=== PATIENT | female | born 2000 | race Caucasian/White ===

== ENCOUNTER 2020-09-10 05:39 | Emergency (ER) | payer BC, SELFPAY ==
--- NOTE | ~2020-09-10 | CT_ITS ---
EXAMINATION: CT brain w con DATE: 09/10/2020 08:44 INDICATION: Facial swelling and leukocytosis. TECHNIQUE: Computed tomography (CT) of the head was performed with 100 mL Omnipaque-350 intravenous c ontrast. Sagittal and coronal reconstructions were performed. The mA was adjusted according to patien t size. Iterative reconstruction technique was employed. The dose-length product was 605.33 mGy-cm. COMPARISON: None FINDINGS: No acute intracranial hemorrhage, acute infarction or abnormal extra axial fluid collection. Ventricl es are normal and symmetric. No mass/mass effect. No abnormally enhancing brain lesions. Cerebral vas culature appears normal with no hemodynamically significant stenosis or aneurysm. The cerebral venous sinuses are patent no evident thrombosis. The paranasal sinuses and mastoid air cells are normal. Mi ld preseptal edema at the left orbit. Orbits are otherwise unremarkable with no post septal inflammat ory stranding. IMPRESSION: 1. Mild preseptal edema at the left orbit without evident post septal inflammatory stranding. 2. Otherwise unremarkable head CT with normal brain and no acute intracranial process. Reviewed, dictated and finalized at location A. IMPRESSION: 1. Mild preseptal edema at the left orbit without evident post septal inflammat ory stranding. 2. Otherwise unremarkable head CT with normal brain and no acute intracranial p rocess.
--- NOTE | ~2020-09-10 | CT_ITS ---
EXAMINATION: CT facial bones w con DATE: 09/10/2020 06:58 INDICATION: Left eye pain and swelling TECHNIQUE: Computed tomography (CT) of the facial bones and maxillofacial region was performed with 7 5 cc of Omnipaque 350 intravenous contrast. The dose-length product (DLP) was 308.27 mGy-cm. Automate d exposure control and iterative reconstruction technique were employed. COMPARISON: None. FINDINGS: There is subtle thickening and inflammation of the left eyelid compared to the right. No fo mercedes fluid collection is identified. The facial bones are unremarkable. The globes are intact. Gaze is mildly disconjugate. There is mild mucosal thickening of the left maxillary sinus posteriorly. IMPRESSION: 1. Subtle thickening and inflammation of the left eyelid compared to the right without evidence of ab scess. Reviewed, dictated and finalized at location A. IMPRESSION: 1. Subtle thickening and inflammation of the left eyelid compared to the right without evidence of abscess.
[2020-09-10 05:44] VITALS: BP 110/72; PULSE 78; RESP 16; TEMP 35.9; O2SAT 98
[2020-09-10] MEDS: TETRACAINE HCL 0.5% OPHTH SOLN 4 ML BTL 2 DROP LEFT EYE (06:05)
--- NOTE | 2020-09-10 06:08 | ED.GENADULT ---
HPI - General Adult General Chief complaint: Eye Problems <Gui Wise MD - Last Filed: 09/10/20 07:11> Stated complaint: eye pain with swelling <Gui Wise MD - Last Filed: 09/10/20 07:11> Time Seen by Provider: 09/10/20 05:53 <Gui Wise MD - Last Filed: 09/10/20 07:11> History of Present Illness HPI narrative: Patient is a 20-year-old female that presents the emergency department with chief complaint of left eye pain. The patient was seen at urgent care last week diagnosed with a sinus infection and conjunctivitis. Patient was given a steroid and also was on Augmentin. Patient reports he is completed the course of the Augmentin and reports she has discomfort in her left eye and reports that she has injection of her conjunctiva. Patient reports that it hurts whenever she opens her eyes reports that her eyelid is red and swollen on the left side. Patient denies fever states is a little bit of a scratchy throat with this <Gui Wise MD - Last Filed: 09/10/20 07:11> Related Data Allergies/adverse reactions: Allergies Allergy/AdvReac Type Severity Reaction Status Date / Time No Known Allergies Allergy Verified 08/05/20 13:05 <Gui Wise MD - Last Filed: 09/10/20 07:11> Review of Systems Review of Systems: Narrative: A 10 system review of systems was completed on the patient and is negative except for what is stated in the HPI. Nursing and ancillary documentation was reviewed. <Gui Wise MD - Last Filed: 09/10/20 07:11> [facility] Past Medical History Medical History: Medical History Acute non-recurrent maxillary sinusitis BMI 20.0-20.9, adult Depression with anxiety Dietary counseling and surveillance (12/31/17) Family hx of ALS (amyotrophic lateral sclerosis) Pain in thoracic spine Routine physical examination Thoracolumbar back pain Viral upper respiratory infection <Gui Wise MD - Last Filed: 09/10/20 07:11> Family History Family History: Family History Father Diabetes mellitus Mother ALS (amyotrophic lateral sclerosis) Sibling No problems noted. <Gui Wise MD - Last Filed: 09/10/20 07:11> Social History Social History: Social History Smoking status: Never smoker Second hand tobacco smoke exposure: Yes Alcohol intake: current Substance use: current Substance use type: marijuana Additional occupation/education comments: [employer] Gender identity (if verbalized by the patient): Female <Gui Wise MD - Last Filed: 09/10/20 07:11> Exam Narrative: Exam Narrative: GENERAL: Well-appearing, well-nourished, and in no acute distress. HEAD: Normocephalic, atraumatic. EYES: PERRLA and EOMI. left eye is injected left eyelid is erythematous ENT: Nares clear, no rhinorrhea or epistaxis. Mucous membranes moist. NECK: Supple. CHEST: Clear to auscultation. No respiratory distress. HEART: Regular rate and rhythm. No murmur heard. Normal peripheral pulses. ABDOMEN: Soft, nontender, nondistended, normal active bowel sounds. EXTREMITIES: Normal range of motion. No edema. SKIN: Warm, dry, no rash. NEURO: No focal deficits. Alert and oriented x3. PSYCH: Normal mood and affect. <Gui Wise MD - Last Filed: 09/10/20 07:11> Course Course Emergency Course: Pt has had two or possibly three courses of augmentin and/or azithro, and two courses of steroids already I did a brain CT, no evidence for CVT She had appt with Dr Vera (ENT) for Sunday and he was able to see her in the ED, thinks more likely ophthamologic or even rheumatologic which could explain partial response to steroids Stained w/ flourescein and no
[2020-09-10 06:38] LABS: Basophils Absolute Auto 0.1 K/mm3 (0.0-0.1); Basophils Percent Auto 0.3 % (0.2-1.2); Eosinophils Absolute Auto 0.1 K/mm3 (0-0.3); Eosinophils Percent Auto 0.7 % (0-4.4); Hematocrit 38.7 % (37.0-47.0); Hemoglobin 13.1 g/dL (12.0-15.0); Immature Granulocyte Absolute 0.09 K/mm3 (0.00-0.031); Immature Granulocyte Percent A 0.5 % (0-0.5); Lymphocytes Absolute Auto 3.15 K/mm3 (0.9-3.2); Lymphocytes Percent Auto 17.8 % (18.3-44.2); Mean Corpuscular HGB Conc 33.9 g/dl (32-36); Mean Corpuscular Hemoglobin 32.8 pg (26-34); Mean Corpuscular Volume 96.8 fl (80-100); Mean Platelet Volume 9.3 fl (7.4-10.4); Monocytes Absolute Auto 1.1 K/mm3 (0.1-0.6); Neutrophils Absolute Auto 13.2 K/mm3 (1.3-6.7); Neutrophils Percent Auto 74.7 % (45.5-73.1); Platelet Count Result 311 k/mm3 (150-375); Red Cell Distribution Width 12.4 % (11.5-14.5); White Blood Count 17.7 K/mm3 (4.5-10.0)
[2020-09-10 06:46] LABS: Alanine Aminotransferase 23 U/L (4-35); Albumin Level 4.3 g/dL (3.5-5.1); Alkaline Phosphatase 65 U/L (38-126); Anion Gap 4 mmol/L (8-16); Aspartate Amino Transferase 26 U/L (14-36); Bilirubin,Total 0.2 mg/dL (0.2-1.3); Blood Urea Nitrogen 15 mg/dL (7-17); Calcium 9.5 mg/dL (8.4-10.2); Carbon Dioxide 31 mmol/L (22-30); Chloride 105 mmol/L (98-107); Estimated CRCL calculation 91 ml/min; Estimated Glomerular Filt Rate > 60; Glucose 97 mg/dL (65-105); Potassium 4.4 mmol/L (3.4-5.0); Sodium 140 mmol/L (137-145)
[2020-09-10 07:21] VITALS: BP 104/72; PULSE 61; RESP 18; O2SAT 98
[2020-09-10 09:10] VITALS: BP 108/77; PULSE 62; RESP 18; O2SAT 99
[2020-09-10 10:45] VITALS: BP 111/77; PULSE 81; RESP 18; O2SAT 99
--- NOTE | 2020-09-10 11:00 | PC.NURSE ---
Report given to MAGALYS Leslie
[2020-09-10] MEDS: KETOROLAC 15 MG/ML VIAL (*BKC) IV PUSH (11:01)
--- NOTE | 2020-09-10 12:02 | WPDCN ---
Assessment and Plan Assessment and plan (1) Orbital edema: Code(s): H05.229 - Edema of unspecified orbit Status: Acute Assessment and Plan: Given the blurred vision and edema with normal sinonasal examination and imaging, I would recommend an urgent evaluation by an paper feeder. My impression is that the patient has an inflammatory disorder possibly rheumatologic vs allergic vs infectious. (2) Blurred vision: Code(s): H53.8 - Other visual disturbances Status: Acute HPI Data of Consult Date/Time: 09/10/20 12:02 Primary Care Provider: Noe Shelley MD Consult Narrative Narrative: Yudith Stephen is a 20 year old female for recurrent intermittent eye swelling of one months duration. No hx of allergies. Abx typically do not help. Steroids help. Second generation antihistamines help. White count elevated. Pt complains of eye pain and blurred vision. Optho not available for consultation. CT reviewed, relatively normal, no sinonasal pathology. eyelids mildly edematous. Possible myositis? [facility] Past Medical History Medical History Acute non-recurrent maxillary sinusitis BMI 20.0-20.9, adult Depression with anxiety Dietary counseling and surveillance (12/31/17) Family hx of ALS (amyotrophic lateral sclerosis) Pain in thoracic spine Routine physical examination Thoracolumbar back pain Viral upper respiratory infection Family History Family History Father Diabetes mellitus Mother ALS (amyotrophic lateral sclerosis) Sibling No problems noted. Social History Social History Smoking status: Never smoker Second hand tobacco smoke exposure: Yes Alcohol intake: current Substance use: current Substance use type: marijuana Additional occupation/education comments: [employer] Gender identity (if verbalized by the patient): Female Meds Home Medications and Allergies Home Medications Medication Instructions Recorded Confirmed Type azithromycin 250 mg tablet See Rx Instructions PO .COMPLEX #6 08/05/20 08/05/20 Rx tablet Allergies Allergy/AdvReac Type Severity Reaction Status Date / Time No Known Allergies Allergy Verified 08/05/20 13:05 Vital Signs Vital Signs - 24 hr 09/10/20 05:44 09/10/20 07:21 09/10/20 09:10 Temperature 35.9 C L Pulse Rate 78 61 62 Respiratory Rate 16 18 18 Blood Pressure 110/72 104/72 108/77 Pulse Oximetry 98 98 99 09/10/20 10:45 Temperature Pulse Rate 81 Respiratory Rate 18 Blood Pressure 111/77 Pulse Oximetry 99 Exam HENMT: Other: Bilateral orbital edema, excess tearing, mild injection Results Labs CBC & Chem 7: 09/10/20 06:31 09/10/20 06:31 Labs: Short CBC 09/10/20 Range/Units 06:31 WBC 17.7 H (4.5-10.0) K/mm3 Hgb 13.1 (12.0-15.0) g/dL Hct 38.7 (37.0-47.0) % Plt Count 311 (150-375) k/mm3 BMP 09/10/20 06:31 Sodium 140 Potassium 4.4 Chloride 105 Carbon Dioxide 31 H BUN 15 Creatinine 0.70 Glucose 97 Calcium 9.5 Liver Function 09/10/20 Range/Units 06:31 Total Bilirubin 0.2 (0.2-1.3) mg/dL AST 26 (14-36) U/L ALT 23 (4-35) U/L Alkaline Phosphatase 65 (38-126) U/L Albumin 4.3 (3.5-5.1) g/dL
== END 2020-09-10 13:15 | disposition home or self-care (01) ==
PROVIDERS: Emergency Medicine; Emergency Provider Emergency Medicine; PCP Family Medicine
DX: L03.213 Periorbital cellulitis (principal); H05.229 Edema of unspecified orbit; H53.8 Other visual disturbances
CPT/HCPCS: 36415; 70460; 70487; 80053; 81025; 85025; 96374; 99284; A9270; J1885; Q9967

== ENCOUNTER 2023-07-13 10:38 | Outpatient (CLI) | payer BC, SELFPAY ==
--- NOTE | ~2023-07-13 | XR_ITS ---
Right foot Technique: AP and lateral views were obtained. Clinical History: Swelling Findings: No acute fracture or dislocation is seen. Osseous alignment is anatomic. Joint spaces are p reserved without erosive or degenerative change. Soft tissues are unremarkable. Impression: Unremarkable right foot radiographs. Reviewed, dictated and finalized at [facility]. [employer] Impression: Unremarkable right foot radiographs.
== END 2023-07-13 10:39 ==
PROVIDERS: PCP Nurse Practitioner Adult Health; Visit Provider Nurse Practitioner Adult Health
DX: R60.0 Localized edema (principal)
CPT/HCPCS: 73620

== ENCOUNTER 2023-09-26 11:12 | Emergency (ER) | payer BC, SELFPAY ==
--- NOTE | ~2023-09-26 | CT_ITS ---
EXAMINATION: CT abdomen pelvis w con DATE: 09/26/2023 13:02 INDICATION: Epigastric abdominal pain, heartburn TECHNIQUE: Computed tomography (CT) of the abdomen and pelvis was performed with 100 CC Omnipaque 350 intravenous contrast. Automated exposure control and iterative reconstruction technique were employe d. Exam dose: 349.22 mGy-cm total exam DLP. COMPARISON: None. FINDINGS: The lung bases are clear. Normal heart size. No pericardial or pleural effusion. The liver, gallbladder, bile ducts, spleen, pancreas, pancreatic duct, adrenal glands and kidneys raven ear normal. Normal caliber of the abdominal aorta. No intraperitoneal or retroperitoneal or pelvic mass lesion or adenopathy or ascites. The uterus and adnexal areas and urinary bladder are unremarkable. No bowel obstruction, bowel wall thickening, pneumatosis or intraperitoneal free air is detected. Included skeletal structures are unremarkable. IMPRESSION: No significant abnormality Reviewed, dictated and finalized at [facility]. Reviewed, dictated and finalized at location B. IMPRESSION: No significant abnormality
[2023-09-26 11:27] VITALS: BP 148/100; PULSE 97; RESP 20; TEMP 36.6; O2SAT 100
[2023-09-26 11:57] LABS: Basophils Percent Auto 0.3 % (0.2-1.2); Hematocrit 41.6 % (37.0-47.0); Hemoglobin 14.2 g/dL (12.0-15.0); Immature Granulocyte Absolute 0.06 K/mm3 (0.00-0.031); Immature Granulocyte Percent A 0.4 % (0-0.5); Lymphocytes Absolute Auto 0.98 K/mm3 (0.9-3.2); Lymphocytes Percent Auto 7.3 % (18.3-44.2); Mean Corpuscular HGB Conc 34.1 g/dl (32-36); Mean Corpuscular Hemoglobin 31.9 pg (26-34); Mean Corpuscular Volume 93.5 fl (80-100); Mean Platelet Volume 10.3 fl (7.4-10.4); Monocytes Absolute Auto 0.3 K/mm3 (0.1-0.6); Monocytes Percent Auto 2.2 % (2.6-8.5); Neutrophils Percent Auto 89.8 % (45.5-73.1); Platelet Count Result 293 k/mm3 (150-375); Red Blood Count 4.45 M/mm3 (4.2-5.4); Red Cell Distribution Width 11.9 % (11.5-14.5); White Blood Count 13.4 K/mm3 (4.5-10.0)
[2023-09-26 12:07] LABS: Alanine Aminotransferase 22 U/L (6-35); Albumin Level 4.8 g/dL (3.5-5.1); Alkaline Phosphatase 92 U/L (38-126); Anion Gap 11 mmol/L (4-12); Aspartate Amino Transferase 20 U/L (14-36); Bilirubin,Total 0.4 mg/dL (0.2-1.3); Blood Urea Nitrogen 8 mg/dL (7-17); Calcium 9.3 mg/dL (8.4-10.2); Carbon Dioxide 23 mmol/L (22-30); Chloride 106 mmol/L (98-107); Estimated CRCL calculation 101 ml/min; Estimated Glomerular Filt Rate > 60; Glucose 136 mg/dL (65-110); Lipase 377 U/L (23-300); Potassium 3.9 mmol/L (3.4-5.0); Sodium 140 mmol/L (137-145)
--- NOTE | 2023-09-26 12:31 | ED.ABDPAIN ---
HPI - Abdominal Pain General Chief Complaint: Abdominal Pain Stated Complaint: heartburn X10 days Time Seen by Provider: 09/26/23 12:08 History of Present Illness HPI narrative: 23-year-old female presents to the emergency room for evaluation of recurrent epigastric abdominal pain. Patient is complaining of abdominal pain for over 1 week. He was seen at [facility] emergency room with the onset of symptoms. Patient states that the CT scan was obtained showing no abnormalities. Patient was given GI cocktail which she states helped little bit. Was sent home with famotidine, stating tonight help. Patient continues to experience epigastric pain with nausea. Denies fevers. Denies vomiting or diarrhea or constipation. Related Data Home Medications Medication Instructions Recorded Confirmed aripiprazole 5 mg tablet mg PO DAILY 05/25/23 07/13/23 drospirenone 3 mg-ethinyl tablet PO DAILY 05/25/23 07/13/23 estradiol 0.02 mg tablet (Lo-Zumandimine (28)) sertraline 50 mg tablet mg PO DAILY 05/25/23 07/13/23 Allergies Allergy/AdvReac Type Severity Reaction Status Date / Time No Known Allergies Allergy Verified 09/26/23 11:12 Review of Systems Review of Systems: ROS unremarkable except for stated in HPI PMFSH Past Medical History Medical History Acute non-recurrent maxillary sinusitis BMI 20.0-20.9, adult Depression with anxiety Dietary counseling and surveillance (12/31/17) Edema of right foot Family hx of ALS (amyotrophic lateral sclerosis) Pain in thoracic spine Routine physical examination Thoracolumbar back pain Viral upper respiratory infection Family History Family History Father Diabetes mellitus Mother ALS (amyotrophic lateral sclerosis) Sibling No problems noted. Social History Social History Smoking status: Never smoker Second hand tobacco smoke exposure: Yes Alcohol intake: current Substance use: current Substance use type: marijuana Living arrangements: with family Occupation/Education: occupation Additional occupation/education comments: [employer] Gender identity (if verbalized by the patient): Female Exam Narrative: GENERAL: Well-appearing, well-nourished, no physical limitations, and in no acute distress. HEAD: Normocephalic, atraumatic. EYES: Conjunctivae normal, PERRLA and EOMI. CHEST: Clear to auscultation. No respiratory distress. No wheezes rales or rhonchi. HEART: Regular rate and rhythm. No murmur heard. Normal peripheral pulses. ABDOMEN: Soft, upper abdominal epigastric tenderness, nondistended, normal active bowel sounds. BACK: No CVA tenderness EXTREMITIES: Normal range of motion. No edema. No clubbing or cyanosis SKIN: Warm, dry, no rash. No noted wounds NEURO: No focal deficits. Alert and oriented x3. MAEW. CN's II-XI intact bilaterally, normal gait PSYCH: Cooperative. Normal mood and affect. Course Vital Signs Vital signs: Vital Signs Temperature 36.6 C 09/26/23 11:27 Pulse Rate 97 09/26/23 11:27 Respiratory Rate 20 09/26/23 11:27 Blood Pressure 148/100 H 09/26/23 11:27 Pulse Oximetry 100 09/26/23 11:27 Oxygen Delivery Room Air 09/26/23 11:27 Temperature 36.6 C 09/26/23 11:27 Pulse Rate 64 09/26/23 13:05 Respiratory Rate 18 09/26/23 13:05 Blood Pressure 131/82 09/26/23 13:05 Pulse Oximetry 100 09/26/23 13:05 Oxygen Delivery Room Air 09/26/23 11:27 MDM - Abdominal Pain Lab Data 09/26/23 11:33 09/26/23 11:33 Labs: Lab Results 09/26/23 09/26/23 Range/Units 11:33 12:47 WBC 13.4 H (4.5-10.0) K/mm3 RBC 4.45 (4.2-5.4) M/mm3 Hgb 14.2 (12.0-15.0) g/dL Hct 41.6 (37.0-47.0) % MCV 93.5 (80-100) fl MCH 31.9 (26-34) pg MCHC 34.1 (32-36) g/dl RDW
[2023-09-26] MEDS: ONDANSETRON INJ 4 MG/2 ML VIAL IV PUSH (12:45)
[2023-09-26] MEDS: SODIUM CHLORIDE 0.9% IV 1,000 ML 999 ML IV CONT (12:45)
[2023-09-26] MEDS: BELLADONNA ALK/PHENOB ELIX 10 ML, MAG HYDROX/ALUMINUM HYD/SIMETH 30 ML, LIDOCAINE HCL 2... PO (12:45)
[2023-09-26 13:05] VITALS: BP 131/82; PULSE 64; RESP 18; O2SAT 100
[2023-09-26 13:11] LABS: Add Urine Microscopic? YES; Appearance Urine Clear (Clear); Bacteria Urine Rare /hpf; Bilirubin Urine Negative (Negative); Blood Urine Negative (Negative); Color Urine Yellow (Yellow); Glucose Urine UA Negative (Negative); Ketones Urine Negative (Negative); Leukocyte Esterase Ur 1+ LEU/UL (Negative); Nitrate Urine Negative (Negative); Non Pathogenic Casts 0-2; Protein Urine Negative (Negative); Specific Grav Ur 1.019 (1.001-1.035); Squamous Epithelial Cell Urine Moderate /hpf (Few); Urobilinogen Urine 0.2 mg/dL (<2.0)
[2023-09-26 14:49] VITALS: BP 128/83; PULSE 68; RESP 17; TEMP 36.9; O2SAT 100
== END 2023-09-26 14:50 | disposition home or self-care (01) ==
PROVIDERS: Student in an Organized Health Care Education/Training Program; Emergency Provider Nurse Practitioner Family; PCP Family Medicine
DX: R10.13 Epigastric pain (principal); F41.8 Other specified anxiety disorders
CPT/HCPCS: 36415; 74177; 80053; 81001; 81025; 83690; 85025; 87086; 87088; 96361; 96374; 99284; A9270; J2405; J7030; Q9967

== ENCOUNTER 2023-11-27 01:30 | Day surgery (SDC) | payer BC, SELFPAY ==
[2023-11-14 09:31] VITALS: BMI 25.2
[2023-11-27 12:59] VITALS: BP 114/58; PULSE 66; RESP 16; TEMP 36.2; O2SAT 96; BMI 24.9
--- NOTE | 2023-11-27 13:25 | P.PNAN_ITS ---
Anes - Initial Pre Proc Eval Procedure: Operation Date: 11/27/23 14:30 Proposed Procedures p Esophagogastroduodenoscopy - Alden Peña MD Date/Time: 11/27/23 13:25 Surgeon: Alden Peña MD Pre Op Diagnosis: Nausea with vomiting unspecified Patient Data Age: 23 Gender: F Height: 1.7 m Weight: 72.2 kg Last Vital Signs Temp 36.2 C L 11/27/23 12:59 Pulse 66 11/27/23 12:59 Resp 16 11/27/23 12:59 BP 114/58 L 11/27/23 12:59 Pulse Ox 96 11/27/23 12:59 O2 Del Method Room Air 11/27/23 12:59 Allergies Allergy/AdvReac Type Severity Reaction Status Date / Time No Known Allergies Allergy Verified 11/27/23 12:58 Home Medications Medication Instructions Recorded Confirmed Type aripiprazole 5 mg tablet 5 mg PO DAILY 05/25/23 11/27/23 History drospirenone 3 mg-ethinyl 1 tablet PO DAILY 05/25/23 11/27/23 History estradiol 0.02 mg tablet (Lo-Zumandimine (28)) sertraline 50 mg tablet 25 mg PO DAILY 05/25/23 11/27/23 History omeprazole 40 mg capsule,delayed 40 mg PO DAILY 3 months #90 caps 10/18/23 11/27/23 Rx release Patient hx anesthesia problems: none Family hx anesthesia problems: none Results Review: All pre-operative results and documents have been reviewed as part of the pre- operative evaluation. ON LICENSE OF [facility] Past Medical History Medical History Acute non-recurrent maxillary sinusitis BMI 20.0-20.9, adult Depression with anxiety Dietary counseling and surveillance (12/31/17) Edema of right foot Family hx of ALS (amyotrophic lateral sclerosis) Nausea and vomiting Pain in thoracic spine Routine physical examination Thoracolumbar back pain Viral upper respiratory infection Family History Family History Father Diabetes mellitus Mother ALS (amyotrophic lateral sclerosis) Sibling No problems noted. Social History Social History (Updated 11/27/23 @ 13:25 by Bandar Zamorano MD) Smoking status: Current every day smoker Second hand tobacco smoke exposure: Yes Alcohol intake: current Substance use: current Substance use type: marijuana Other substance usage details: several times a day Living arrangements: with family Occupation/Education: occupation Additional occupation/education comments: [employer] Gender identity (if verbalized by the patient): Female Anes - Eval Final PreProcedure Day of Procedure 11/27/23 13:25 Patient weight: normal Heart: regular rate and rhythm Lungs: clear to auscultation Airway: Mallampati scale class II Neurological: alert and oriented Last oral intake: >/= 8 hours ASA classification: II Emergent: no Anesthetic plan: proceed Anesthesia type and monitoring: general GIVS and standard monitoring Results Review: All pre-operative results and documents have been reviewed as part of the pre- operative evaluation. Informed Consent: The patient's anesthetic plan and its attendant risks and benefits were discussed with the patient/family/POA. Questions were solicited and answers provided to the satisfaction of the patient/family/POA.
[2023-11-27] MEDS: LACTATED RINGERS 1,000 ML 150 ML IV CONT (13:36)
--- NOTE | 2023-11-27 14:08 | PM.HPGS ---
History of Present Illness History of Present Illness Consent: Risks, benefits, and alternatives have been discussed and questions answered. Patient agrees to proceed with procedure. Chief complaint: Nausea with vomiting unspecified Narrative: Yudith Stephen is a 23 year old female with gerd and nausea, some relief when she was using omeprazole, never had egd Review of Systems Review of Systems: All systems reviewed & are unremarkable except as noted in HPI and below PMFSH Past Medical History Medical History (Updated 11/27/23 @ 14:09 by Alden Peña MD) Acute non-recurrent maxillary sinusitis BMI 20.0-20.9, adult Depression with anxiety Dietary counseling and surveillance (12/31/17) Edema of right foot Family hx of ALS (amyotrophic lateral sclerosis) GERD (gastroesophageal reflux disease) Nausea and vomiting Pain in thoracic spine Routine physical examination Thoracolumbar back pain Viral upper respiratory infection Family History Family History Father Diabetes mellitus Mother ALS (amyotrophic lateral sclerosis) Sibling No problems noted. Social History Social History (Updated 11/27/23 @ 13:25 by Bandar Zamorano MD) Smoking status: Current every day smoker Second hand tobacco smoke exposure: Yes Alcohol intake: current Substance use: current Substance use type: marijuana Other substance usage details: several times a day Living arrangements: with family Occupation/Education: occupation Additional occupation/education comments: [employer] Gender identity (if verbalized by the patient): Female Meds Home Medications and Allergies Home Medications Medication Instructions Recorded Confirmed Type aripiprazole 5 mg tablet 5 mg PO DAILY 05/25/23 11/27/23 History drospirenone 3 mg-ethinyl 1 tablet PO DAILY 05/25/23 11/27/23 History estradiol 0.02 mg tablet (Lo-Zumandimine (28)) sertraline 50 mg tablet 25 mg PO DAILY 05/25/23 11/27/23 History omeprazole 40 mg capsule,delayed 40 mg PO DAILY 3 months #90 caps 10/18/23 11/27/23 Rx release Allergies Allergy/AdvReac Type Severity Reaction Status Date / Time No Known Allergies Allergy Verified 11/27/23 12:58 Vital Signs Vital Signs - 24 hr 11/27/23 12:59 Temperature 97.2 F L Pulse Rate 66 Respiratory Rate 16 Blood Pressure 114/58 L Pulse Oximetry 96 Oxygen Delivery Room Air Exam Const: General: comfortable and no acute distress HENMT: Face/Nose/Sinus: Normal nares present Eyes: General: appearance normal, both eyes and all related structures Neck: Neck: no JVD Resp: Auscultation: clear to auscultation bilaterally Cardio: Rate: regular rate Rhythm: regular rhythm GI: Inspection: non-distended GI Palp: Yes Soft to palpation Skin: General skin exam: normal color Neuro: General: gait normal Speech: normal speech Extrem: General: normal to inspection Psych: Mental Status: mental status grossly normal Assessment and Plan Assessment and plan (1) Nausea and vomiting: Code(s): R11.2 - Nausea with vomiting, unspecified Status: Acute Assessment and Plan: egd with bx (2) GERD (gastroesophageal reflux disease): Code(s): K21.9 - Gastro-esophageal reflux disease without esophagitis Status: Acute
[2023-11-27 14:21] VITALS: BP 115/82; PULSE 87; RESP 19; O2SAT 96
[2023-11-27 14:31] VITALS: BP 126/90; PULSE 75; RESP 20; O2SAT 100
[2023-11-27 14:41] VITALS: BP 117/78; PULSE 71; RESP 21; O2SAT 100
== END 2023-11-27 14:49 | disposition home or self-care (01) ==
PROVIDERS: PCP Family Medicine; Referring Provider Nurse Practitioner Family; Visit Provider Internal Medicine Gastroenterology
PROC: 0DJ08ZZ Inspection of Upper Intestinal Tract, Via Natural or Artificial Opening Endoscopic (ICD-10-PCS; CPT 43235; principal; 2023-11-27 14:30)
DX: K21.00 Gastro-esophageal reflux disease with esophagitis, without bleeding (principal); F41.8 Other specified anxiety disorders; F12.90 Cannabis use, unspecified, uncomplicated
CPT/HCPCS: 43239; 88305; J2704; J7120

== ENCOUNTER 2023-12-26 15:00 | Outpatient (CLI) | payer BC, SELFPAY ==
--- NOTE | ~2023-12-26 | XR_ITS ---
EXAMINATION: XR sacrum coccyx min 2V DATE: 12/26/2023 15:10 INDICATION: Sacrococcygeal pain. TECHNIQUE: 3 views of the sacrum and coccyx were obtained. COMPARISON: CT abdomen and pelvis 09/26/2023 FINDINGS: Bone alignment is normal. No fracture. The sacroiliac joints are normal. IMPRESSION: 1. Normal sacrum and coccyx. Reviewed, dictated and finalized at location A.
== END 2023-12-26 15:01 ==
PROVIDERS: PCP Nurse Practitioner Adult Health; Visit Provider Nurse Practitioner Adult Health
DX: M53.3 Sacrococcygeal disorders, not elsewhere classified (principal)
CPT/HCPCS: 72220

== ENCOUNTER 2024-08-25 14:58 | Outpatient (CLI) | payer BC, SELFPAY ==
--- NOTE | ~2024-08-25 | XR_ITS ---
XR hand RT min 3V Ordering provider: Alesha Mccall NP History: . M79.641 - Pain in right hand . Comparison: None. FINDINGS: BONES: No acute fracture or dislocation. JOINT SPACES: Normal. SOFT TISSUES: Normal. IMPRESSION: No acute osseous abnormality right hand. Reviewed, dictated and finalized at location A.
== END 2024-08-25 14:59 | disposition home or self-care (01) ==
LOC: MICIMG 14:59
PROVIDERS: PCP Family Medicine
DX: M79.641 Pain in right hand (principal)
CPT/HCPCS: 73130

== ENCOUNTER 2024-09-10 00:31 | Day surgery (SDC) | payer BC, SELFPAY ==
[2024-08-28 13:32] VITALS: BMI 26.9
--- OUTSIDE RECORDS SUMMARY | 2024-09-10 00:34 | XMS_ITS | Clinical Summary ---
Author Organization [facility] Care Team Providers Care Scrap Sorter Name Role Phone Unavailable Primary Care Provider Unavailabl e Social History Tobacco Use Types Packs/Day Years Used Date Smoking Tobacco: Never Assessed Comments Unknown Sex and Gender Information Value Date Recorded Sex Assigned at Not on file Legal Sex Female 7:23 PM CDT Gender Identity Not on file Sexual Orientation Not on file Plan of Treatment Not on file
--- OUTSIDE RECORDS SUMMARY | 2024-09-10 00:34 | XMS_ITS | Clinical Summary ---
Author Organization [facility] Address [address] [place] [address] Care Team Providers Care Manufacturing Automation Engineer Name Role Phone Noe Shelley MD Primary Care Provider [phone] MD Unavailable Source Comments [facility],non-owned Affiliates and Associated Physician Practices is amultiple site organization consisting of ambulatory clinics and hospital sitesin [place], [place], [place] and [place]. This disclosure is being madepursuant to the Care Everywhere program and may not contain all information available regarding this patient. Last updated 18.[facility] Allergies No known active allergies Medications * Be aware that medications may not be up to date on this document. Alwaysverify current medications with the patient. mirtazapine (REMERON) 30 MG tabletIndicatio ns:Depression with anxiety Take 30 mg by mouth at bedtime 1 Active escitalopram (LEXAPRO) 10 MG tablet 2 Active clindamycin-ro zoyl peroxide (DUAC) 1.2-5 % gel APPLY EVERY NIGHT AT BEDTIME TO FACE FOR ACNE 2 Active adapalene (DIFFERIN 0.3) 0.3 % gel APPLY EVERY MORNING TO FACE 2 Active sertraline (Zoloft) 50 MG tablet sertraline 50 mg tablet Active metroNIDAZOLE (Flagyl) 500 MG tablet TAKE 1 TABLET BY MOUTH EVERY 12 HOURS FOR 7 DAYS 2 Active fluconazole (Diflucan) 200 MG tablet 2 Active drospirenone-et hinyl estradiol (Erin) 3-0.02 MG tablet 2 Active ARIPiprazole (Abilify) 5 MG tablet 2 Active Active Problems Problem Noted Date Diagnosed Date Tuberculosis, 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 Depression with anxiety 12/21/2020 Long-term current use of hig h risk medication other than anticoagulant 10/28/2020 Uveitis 09/21/2020 Proteinuria 09/17/2020 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 Immunizations Immunization Administration Dates Next Due DTaP VACCINE IM (6wk-6yrs) 08/24/2005,11/21/2001 HIB-HAEMOPHILUS INFLUENZAE B CONJUGATE VACCINE 0 11/21/2001 MMR 08/24/2005,08/19/2001 PNEUMOCOCCAL PCV7 CONJ, PEDS 08/19/2001 POLIO IPV 08/24/2005,11/21/2001 Family History Medical History Relation Name Comments Diabetes - Type 2 Father Hypertension Father ALS - Amyotrophic Lateral Sclerosis Mother Blindness Neg Hx Glaucoma Neg Hx Macular Degeneration Neg Hx Relation Name Status Comments Father Mother Social History Tobacco Use Types Packs/Day Years Used Date Smoking Tobacco: Never Smokeless Tobacco: Never Alcohol Use Standard Drinks/Week Comments Never 0 (1 standard drink = 0.6 oz pur e alcohol) PHQ-2 Answer Date Recorded PHQ2 TOTAL SCORE 0 04/21/2021 Comments No Sex and Gender Information Value Date Recorded Sex Assigned at Not on file Legal Sex Female 11:13 AM [employer] Gender Identity Not on file Sexual Orientation Not on file Last Filed Vital Signs Vital Sign Reading Time Taken Comments Blood Pressure 123/85 09/24/2023 5:02 PM CDT Pulse 65 09/24/2023 5:02 PM CDT Temperature 36.7 C (98 F) 09/24/2023 5:02 PM CDT Respiratory Rate 17 09/24/2023 5:02 PM CDT Oxygen Saturation 100% 09/24/2023 5:02 PM CDT Inhaled Oxygen Concentration - - Weight 68 kg (150 lb) 09/24/2023 12:49 PM CDT Height 167.6 cm (5' 6 ) 09/24/2023 12:49 PM CDT Body Mass Index 24.21 09/24/2023 12:49 PM CDT Plan of Treatment Health Maintenance Due Date Last Done Comments PAP SMEAR 2000 HPV VACCINE (1 - 3-dose series) 2015 DTAP/TDAP/TD VACCINES (3 - Tdap) 2019 08/24/2005, 11/21/2001 HEPATITIS B VACCINE (1 of 3 - 19+ 3-dose series) 2019 CHLAMYDIA/GONORRHEA SCREENING 08/16/2023, 01/02/2022, 09/16/2020 COVID-19 VACCINE ( - 2023-2 5 season) 2024 DEPRESSION SCREENING 05/07/2024 INFLUENZA VACCINE (Season Ended) 2025 ZOSTER VACCINE (1 of 2) 2050 PNEUMOCOCCAL VACCINE Aged Out 08/19/2001 No long er eligible based on patient's age to complete this topic HIB VACCINE Completed 11/21/2001 HIV SCREENING Completed 09/17/2020 HEPATITIS C SCREENING Completed 10/07/2020 MENINGOCOCCAL (Group B) VACCINE SHARED DECISION-MAKING Aged Out No longer eligible based on patient's age to complete this topic MENINGOCOCCAL GROUPS A/C/Y/W VACCINE Aged Out No longer eligible b ased on patient's age to complete this topic Procedures Procedure Name Priority Date/Time Associated Diagnosis Comments HEPATITIS C AB SCREEN RFLX NAAT QUANT Routine 10/07/2020 3:25 PM CDT Panuveitis of both eyes HIV-1 HIV-2 ANTIGEN/ANTIBODY Routine 09/17/2020 10:53 AM CDT Positive QuantiFERON-TB Gold test from Last 3 Months or Most Recently Relevant to Health Maintenance Results * HEPATITIS C AB SCREEN RFLX NAAT QUANT (10/07/2020 3:25 PM CDT) Hepatitis C Antibody Non-react josy Non-reac tive 10/07/2020 5:21 PM CDT [facility] Comment:Hepatitis C Antibody screen indicates no serologic evidence of past or current infection with Hepatitis C Virus. Patients with unexplained liver disease who are immunocompromised or suspected of having acute Hepatitis C infection may benefit from Nucleic Acid Test (BOUCHRA) for Hepatitis C Viral RNA to confirm Hepatitis C status. Blood BLOOD SPECIMEN / Unknown Lab Venipuncture / Unknown 10/07/2020 3:25 PM CDT 10/07/2020 4:34 PM CDT us Michael Harley MD LAB - CHEMISTRY ORDERABLES Fi nal Result Performing Organization Address City/[facility]/ZIP Co de Phone Number [address] [address], [place] [phone] * HIV-1 HIV-2 ANTIGEN/ANTIBODY (09/17/2020 10:53 AM CDT) HIV Antigen/Antibod y 1 & 2 Non-reacti ve Non-react josy 09/17/2020 12:23 PM CDT [facility] Comment:Neither HIV-1 p24 An tigen nor HIV-1/HIV-2 Antibodies are detected. Blood BLOOD SPECIMEN / Unknown Lab Venipuncture / Unknown 09/17/2020 10:53 AM CDT 09/17/2020 11:36 AM CDT us Bren Peguero MD LAB - HEMATOLOGY ORDERABLES Fin al Result Performing Organization Address [facility]/ZIP Co de Phone Number [address] [address], [place] [phone] from Last 3 Months or Most Recently Relevant to Health Maintenance Insurance [facility] [employer] * Guarantor: SIENNA STEPHEN Account Type Relation to Patient Date of Phone Billing Address Personal/Family [address] [place] [id number] [employer] [place] SELF PAY [place] INSURANCE Member Subscriber Plan / Payer (Ef fective for All Dates) Name:Liborio Stephenlie Member ID:Not on file Relation to Subscriber:Not on file Name:STEPHENMGE Subscriber ID:Not on file Address: [address] [place] [address] Payer ID:Not on file Group ID:Not on file Type:Self Pay Address: [place], [place] * Guarantor: SIENNA STEPHEN Account Type Relation to Patient Date of Phone Billing Address Personal/Family [address] [place] [address]/[facility] [place] SELF PAY NO INSURANCE Member Subscriber Plan / Payer (Ef fective for All Dates) Name:Liborio Stephenlie Member ID:Not on file Relation to Subscriber:Not on file Name:SIENNA STEPHEN Subscriber ID:Not on file Address: [address] [place] [address] Payer ID:Not on file Group ID:Not on file Type:Self Pay Address: [place], [place] * Guarantor: SIENNA STEPHEN Account Type Relation to Patient Date of Phone Billing Address Personal/Family [address] [place] [address] [employer] [place] SELF PAY NO INSURANCE Member Subscriber Plan / Payer (Ef fective for All Dates) Name:Sienna Stephen Member ID:Not on file Relation to Subscriber:Not on file Name:SIENNA STEPHEN Subscriber ID:Not on file Address: [address] [place], [place] [id number] Payer ID:Not on file Group ID:Not on file Type:Self Pay Address: [place], [place] Care Teams Manufacturing Automation Engineer Relationship Specialty Start Date End Date Noe Shelley MD [address] [place] [id number] PCP - General Family Medicine 09/10/[address] MD [address] [facility] [address] [place] [address] Pediatrics 09/10/20
--- OUTSIDE RECORDS SUMMARY | 2024-09-10 00:34 | XMS_ITS | Data Portability ---
Author Organization [facility] Address [address] [place] [place] [address] Care Team Providers Care Caddy Packer Name Role Phone ERON ZHAO Primary Care Provider [phone] Assessment Encounter Date Assessment Date Assessment LastModified by Organization Details LastModified Time 09/29/2021 09/29/2021 Annual gynecological exam performed. Patient will come back in a year unless there are new symptoms. Not available 09/29/2021 12:31:46 01/02/2022 01/02/2022 Time spent in visit is a total of 30 mins with at least 50% of visit consisting of counseling and review of plan of care. [email or web address] Not available 01/02/2022 10:09:38 Plan of Treatment Reminders Order Date Submit Date Provider Last Modified By Organization Details Last Modified Time Details Appointments None recorded. Lab test, urine 2022 023 [address], [address], [place], [address], 3 14:49:15 hsv (1+2) igm, serum 2022 023 [facility] (Lab), [address], [place], [address], 3 17:57:12 hsv-1 igg Ab, serum 2022 023 [facility] (Lab), [address] [place], [address], 3 17:57:11 hsv-2 igg Ab, serum 2022 023 [facility] (Lab), [address], [place], [address], 3 17:57:12 Referral None recorded. Procedures None recorded. Surgeries None recorded. Imaging None recorded. Medication Orders Bactrim DS 800 mg-160 mg tablet 2023 024 [id number], [address], [place], [place], [id number], 4 13:19:14 metronidazo le 500 mg tablet [address] [facility]03849, [address], [place], [place], [id number], 3 14:31:03 ERIN (28) 3 mg-0.02 mg tablet 2022 023 [facility], [address] , [place], [place], [id number], 3 16:34:12 [address] granules in packet [address] [facility]77763, [address], [place], [place], [id number], 3 16:22:15 ERIN (28) 3 mg-0.02 mg tablet 2021 022 [facility], [address] [place] [address], [address], 2 10:00:31 Diflucan 200 mg tablet [address] [place], [place] [address], [address], [place], [place], [id number], 2 09:54:54 metronidazo le 500 mg tablet 2021 [facility]04, [address], [place], [place], [id number], 3 14:31:03 Patient TargetsNo targets recorded. Patient InstructionsNo instructions recorded. Reason for Referral None Reported. 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 Richar valdes kailyn d by Ashleigh Chairez ret, CT on 022 at 7:10 AM ----- ----- ----- ----- ----- ----- ----- ----- ----- ----- ----- ----- ----- ----- ----- ----- ----- ---- COMME NT: Note: This speci men was revie wed by a Cytot echno logis t and/o r Patho logis t (as indic ated in this repor t) after evalu ation using the Thinp rep Imagi ng Syste m. CLINI MER[facility]EDES INFOR MATIO N: Menst rual Statu s: LMP (if appli cable ): Clini mercedes Histo ry/Pr eviou s Pap: Type of Neopl niko (if appli cable ): Signi fican t Clini mercedes Findi ngs: Other Histo ry: Hormo marge (if appli cable ): PAP EDUCA DELGADO L NOTE: The Pap Test is a scree cinda test with an inher ent false negat shena rate. Liqui d-bas ed sampl ing may decre ase, but will not elimi soanl, false negat shena resul ts. A negat shena resul t does not precl ude the prese nce and/o r devel opmen t of disea se, since the prese nce of abnor mal cells in the sampl e depen ds on the locat ion of the lesio n and sampl ing techn ique. Allison nued regul ar scree cinda is the best metho d of cance r preve ntion . If repor beth cytol ogic findi ng do not corre late with physi mercedes and/o r histo rical findi ngs, furth er inves tigat ion is recom wendie d, as clini royal foley nted. Not Available [facility] (Lab) [address], [place], [address], 10/06/2021 08:13:14 09/30/19 22 09/29/2021 TRICH OMONA S VAGIN RADHA (RRNA ) trichomonas vaginalis ribosomal RNA (rrna) Negati ve negati ve Not Available [facility] (Lab) [address], [place], [address], 10/06/2021 08:13:15 09/30/19 22 09/29/2021 CT/GC (BOUCHRA) , THINP REP VIAL chlamydia trachomatis, PCR Negati ve negati ve Not Available [facility] (Lab) [address], [place], [address], 10/06/2021 08:13:15 09/30/19 22 09/29/2021 CT/GC (BOUCHRA) , THINP REP VIAL neisseria gonorrhoeae, PCR Negati ve negati ve Not Available [facility] (Lab) [address], [place], [address], 10/06/2021 08:13:15 01/03/20 22 01/02/2022 CT/GC AND TRICH OMONA S VAGIN RADHA (RRNA ), SWAB chlamydia trachomatis, PCR Negati ve negati ve Not Available [facility] [address] [place] [address], [phone], 01/03/2022 16:02:28 01/03/20 22 01/02/2022 CT/GC AND TRICH OMONA S VAGIN RADHA (RRNA ), SWAB neisseria gonorrhoeae, PCR Negati ve negati ve Not Available [facility] [address] [place] [address], [phone], 01/03/2022 16:02:28 01/03/20 22 01/02/2022 CT/GC AND TRICH OMONA S VAGIN RADHA (RRNA ), SWAB trichomonas vaginalis ribosomal RNA (rrna) Negati ve negati ve Not Available [facility] [address] [place] [address], [phone], 01/03/2022 16:02:28 05/23/19 23 05/23/2022 CT/GC AND TRICH OMONA S VAGIN RADHA (RRNA ), URINE chlamydia trachomatis, PCR Negati ve negati ve Not Available [facility] (Lab) [address], [place], [address], 05/24/2022 12:50:15 05/23/19 23 05/23/2022 CT/GC AND TRICH OMONA S VAGIN RADHA (RRNA ), URINE neisseria gonorrhoeae, PCR Negati ve negati ve Not Available [facility] (Lab) [address], [place], [address], 05/24/2022 12:50:15 05/23/19 23 05/23/2022 CT/GC AND TRICH OMONA S VAGIN RADHA (RRNA ), URINE trichomonas vaginalis ribosomal RNA (rrna) Negati ve negati ve Not Available [facility] (Lab) [address] [facility], [place], [address], 05/24/2022 12:50:15 05/23/19 23 05/23/2022 HERPE S SMPLE X VIRUS TYPE 1 SPECI FIC AB, IGG herpes simplex virus 1 IgG Negati ve negati ve Not Available [facility] (Lab) [address] [facility], [place], [address], 05/27/2022 17:57:11 05/23/19 23 05/23/2022 HERPE S SMPLE X VIRUS TYPE 1 SPECI FIC AB, IGG herpes simplex virus 1 IgG, quant <0.2 ai 0.0-0. 8 Not Available [facility] (Lab) [address] [facility], [place], [address], 05/27/2022 17:57:11 05/23/19 23 05/23/2022 HERPE S SIMPL EX VIRUS TYPE 2 SPECI FIC AB, IGG herpes simplex virus 2 IgG Negati ve negati ve Not Available [facility] (Lab) [address] [facility], [place], [address], 05/27/2022 17:57:12 05/23/19 23 05/23/2022 HERPE S SIMPL EX VIRUS TYPE 2 SPECI FIC AB, IGG herpes simples virus 2 IgG, quant <0.2 ai 0.0-0. 8 Not Available [facility] (Lab) [address] [place], [address], 05/27/2022 17:57:12 05/23/19 23 05/23/2022 HERPE S SIMPL EX VIRUS , 1 AND 2 IGM, IFA hsv 1 IgM screen NEGATI VE Not Available [facility] (Lab) [address] [facility], [place], [address], 05/27/2022 17:57:12 05/23/19 23 05/23/2022 HERPE S SIMPL EX VIRUS , 1 AND 2 IGM, IFA hsv 2 IgM screen NEGATI VE REFER ENCE RANGE : NEGAT SHENA HSV IgM is detec table in serum from >90% of patie nts with prima ry HSV infec tion. Howev er, HSV IgM canno t be relia kiran used to diagn ose acute /rece nt infec tion as it is also found in 30% of patie nts with react ivate d HSV. This test may not disti nguis h betwe en HSV-1 IgM and HSV-2 IgM due to cross -reac tivit y. To diagn ose acute genit al or mucos al HSV infec tion, direc t detec tion from a lesio n by cultu re or molec ular metho ds is prefe rred. HSV IgM posit ivity shoul d be confi rmed by HSV-1 /2 type- speci fic IgG testi ng. This test was devel oped and its kylah tical perfo rmanc e aaron cteri stics have been deter mined by [facility]. It has not been clear ed or appro elyssa by FDA. This assay has been valid ated pursu ant to the CLIA regul ation s and is used for clini mercedes purpo ses. Perfo rming Organ izati on Infor matio n: Site ID: EZ Name: [facility] , Addre ss: [address] [address] [place] [address] Direc tor: Moriah tinsley MD,Ph D,ANASTASIIA Not Available [facility] (Lab) [address], [place], [address], 05/27/2022 17:57:12 08/16/19 23 08/15/2022 pregn lnae test, urine HCG negati ve Not Available [facility] [address], [place], [address], 08/15/2022 14:49:09 Result Notes None recorded. Problems Name Problem SNOMED Code Status Onset Date Resolution Date Notes Provider Name and Address Organization Details Recorded Time Emotiona l state finding Completed 201809/28/2021 Anxiety depressio n;Recorde d Elsewhere : No Locati on: [facility] So urce: EHR Chron ic: N Practic e ID: [id number] Bill able Time: 02:30:00 PM Jessica [facility] 2 17:48:57 Syphilis test finding [id number] Completed 201509/28/2021 Encounter for STD screening ;Recorded Elsewhere : No Locati on: [facility] So urce: EHR Chron ic: N Practic e ID: [id number] Bill able Time: 04:00:00 PM Jessica [facility] 2 17:48:57 Finding of sensatio n of breast Completed 201909/28/2021 Mastodyni a;Recorde d Elsewhere : No Locati on: [facility] So urce: EHR Chron ic: N Practic e ID: [id number] Bill able Time: 01:00:00 PM Jessica [facility] 2 17:48:[address] Concept Completed 201809/15/2020 Well woman check w/o abnormal finding;R ecorded Elsewhere : No Locati on: [facility] So urce: EHR Chron ic: N Practic e ID: [id number] Bill able Time: 02:30:00 PM Jessica [facility] 1 21:39:[address] Concept Completed 201509/15/2020 Encntr for routine child health exam w/o abnormal findings; Recorded Elsewhere : No Locati on: [facility] So urce: EHR Chron ic: N Practic e ID: [id number] Bill able Time: 03:15:00 PM Jessica Quick [facility] 1 21:39:37 Infectio n screenin g Completed 201509/15/2020 Encounter for screening for oth infec/par astc diseases; Recorded Elsewhere : No Locati on: [facility] So urce: EHR Chron ic: N Practic e ID: [id number] Bill able Time: 04:00:00 PM Jessica [facility] 1 21:39:34 Acute vaginiti s [id number] Completed 201809/28/2021 Acute vulvovagi nitis;Rec orded Elsewhere : No Locati on: [facility] So urce: EHR Chron ic: N Practic e ID: [id number] Bill able Time: 02:30:00 PM [facility] 2 17:48:57 Problem Notes None recorded. Procedures Surgical History Date Name Laterality Status Provider Name and Address Organization Details Recorded Time 2 Date of Last Pap Smear completed Yaquelin Villaseñor [facility] 08/24/2023 13:05:23 9 Date of Last Mammogram completed Jessica [facility] 09/15/2020 21:41:22 Imaging Results None recorded. Procedure Notes None recorded. Medical Equipment None Reported. Allergies No known drug allergies Medications Name Sig Start Date Stop Date Status Note LastModified by Organization Details LastModified Time doxycycli ne hyclate 100 mg capsule 05/23 completed Not Available Not Available Not Available fluconazo le 200 mg tablet Take 1 tablet on days 1, 4, & 7 x 3 doses. 01/02 completed Not Available Not Available Not Available spironola ctone 100 mg tablet 08/15 completed Not Available Not Available Not Available metronida zole 500 mg tablet TAKE 1 TABLET BY MOUTH EVERY 12 HOURS FOR 7 DAYS 08/15 completed Not Available Not Available Not Available sulfameth oxazole 800 mg-trimet hoprim 160 mg tablet TAKE 1 TABLET BY MOUTH EVERY 12 HOURS WITH MEALS FOR 5 DAYS active Not Available Not Available No t Available spironola ctone 25 mg tablet take 1 tablet by oral route every day 09/29 completed Prescrib ed Elsewher e: Yes [facility] By: cam melgaruntwilian DateTime : 09/17/19 02:30:00 PM Not Available Not Available Not Available lamotrigi ne 25 mg tablet TAKE 1 TABLET BY MOUTH DAILY FOR 2 WEEKS THEN TAKE 2 TABLETS BY MOUTH DAILY 09/29 completed Not Available Not Available Not Available ketorolac 0.5 % eye drops INSTILL 1 DROP IN LEFT EYE FOUR TIMES DAILY FOR 7 DAYS 05/23 completed Not Available Not Available Not Available isoniazid 300 mg tablet TAKE 1 TABLET BY MOUTH EVERY DAY 09/29 completed Not Available Not Available Not Available rifampin 300 mg capsule TAKE 2 CAPSULES BY MOUTH DAILY BEFORE BREAKFAS T 01/02 completed Not Available Not Available Not Available propranol ol 10 mg tablet TAKE 1 TABLET BY MOUTH TWICE DAILY 09/29 completed Not Available Not Available Not Available Metrogel Vaginal 0.75 % (37.5 mg/5 gram) insert 1 applicat orful by vaginal route for 5 nights at bedtime 08/26 completed Prescrib ed Elsewher e: No [facility] By: ammiguel melgaruntwilian DateTime : 07/25/19 02:25:10 PM Not Available Not Available Not Available prednisol one acetate 1 % eye drops,christianne pension 09/29 completed Not Available Not Available Not Available ethambuto l 400 mg tablet TAKE 3 TABLETS BY MOUTH EVERY 24 HOURS FOR 56 DAYS 09/29 completed Not Available Not Available Not Available benzonata te 100 mg capsule TAKE 1 CAPSULE BY MOUTH TWICE DAILY NEEDED FOR COUGH 09/29 completed Not Available Not Available Not Available mirtazapi ne 30 mg tablet TAKE 1 TABLET BY MOUTH EVERY DAY AT BEDTIME 08/23 completed Not Available Not Available Not Available pyridoxin e (vitamin B6) 50 mg tablet TAKE 1 TABLET BY MOUTH ONCE DAILY 09/29 completed Not Available Not Available Not Available omeprazol e 20 mg capsule,d elayed release TAKE 1 CAPSULE BY MOUTH DAILY active Not Available Not Available No t Available gabapenti n 100 mg capsule TAKE 1 CAPSULE BY MOUTH AT BEDTIME 09/29 completed Not Available Not Available Not Available pyrazinam ian 500 mg tablet TAKE 3 TABLETS BY MOUTH EVERY DAY FOR 56 DAYS 09/29 completed Not Available Not Available Not Available sertralin e 50 mg tablet TAKE 1 TABLET BY MOUTH EVERY DAY active Not Available Not Available No t Available Zithromax 500 mg tablet take 2 tablet by oral route once 07/22 completed Prescrib ed Elsewher e: No Locat ion: [facility] odify By: etienne Adan ncounter DateTime : 04/14/20 16 01:51:26 PM Not Available Not Available Not Available escitalop mary 10 mg tablet TAKE 1 TABLET BY MOUTH EVERY DAY 09/29 completed Not Available Not Available Not Available aripipraz ole 5 mg tablet TAKE 1 TABLET BY MOUTH EVERY NIGHT AT BEDTIME active Not Available Not Available No t Available Wellbutri n XL 150 mg 24 hr tablet, extended release take 2 Tablet by oral route every day 04/24 completed Prescrib ed Elsewher e: No [facility] By: etienne Adan ncounter DateTime : 08/27/19 19 02:30:00 PM Not Available Not Available Not Available Wellbutri n XL 300 mg 24 hr tablet, extended release take 1 tablet by oral route every day 08/26 completed Prescrib ed Elsewher e: No Locat ion: [facility] odify By: lbillhar tz Encou nter DateTime : 07/23/19 19 02:00:00 PM Not Available Not Available Not Available clindamyc in 1.2 % (1 % base)-ro zoyl peroxide 5 % topical gel APPLY EVERY NIGHT AT BEDTIME TO FACE FOR ACNE 05/23 completed Not Available Not Available Not Available adapalene 0.3 % topical gel APPLY EVERY MORNING TO FACE 05/23 completed Not Available Not Available Not Available Solosec [address] granules in packet Take 1 packet every day by oral route with meals for 1 day. 05/23 completed Lot#: [id number], exp 01/2024 Not Available Not Available Not Available Millicent imine (28) 3 mg-0.02 mg tablet TAKE 1 TABLET BY MOUTH DAILY active Not Available Not Available No t Available Vitals Date Recorded Body height Body mass index (BMI) Body weight Systolic blood pressure Diastolic blood pressure Provider Name and Address Organization Details Last Updated DateTime 09/29/2021 168.28 cm 20.8 kg/m2 53890.01 g 120 mm[Hg] 80 mm[Hg] [facility] 2 12:32:44 Date Recorded Body height Body mass index (BMI) Body weight Systolic blood pressure Diastolic blood pressure Provider Name and Address Organization Details Last Updated DateTime 01/02/2022 168.28 cm 20.2 kg/m2 47428.64 g 122 mm[Hg] 76 mm[Hg] [facility] 2 09:54:47 Date Recorded Body height Body mass index (BMI) Body weight Systolic blood pressure Diastolic blood pressure Provider Name and Address Organization Details Last Updated DateTime 05/23/2022 168.28 cm 22.5 kg/m2 59810.65 g 122 mm[Hg] 78 mm[Hg] [facility] 3 16:21:48 Date Recorded Body height Body mass index (BMI) Body weight Provider Name and Address Organization Details Last Updated DateTime 08/15/2022 168.28 cm 24.2 kg/m2 36614.17 g [facility] 08/15/2022 14:30:54 Date Recorded Systolic blood pressure Diastolic blood pressure Provider Name and Address Organization Details Last Updated DateTime 08/15/2022 122 mm[Hg] 80 mm[Hg] Sobeida Lundberg, [facility]- [address], [place], [address], [facility] 08/15/2022 14:46:24 Date Recorded Body height Body mass index (BMI) Body weight Systolic blood pressure Diastolic blood pressure Provider Name and Address Organization Details Last Updated DateTime 08/24/2023 168.28 cm 26.4 kg/m2 15875.74 g 117 mm[Hg] 77 mm[Hg] Yaquelin Villaseñor [facility] 4 13:04:42 Social History Question Answer Notes LastModified by Organizat ion Details LastModified Time Tobacco Smoking Status Never Smoker Jessica Hutchinson jagruti, [facility] 05/23/2022 16:21:58 Do You Have An Advance Directive? No Information n ot available 05/23/2022 What Is Your Level Of Alcohol Consumption? Occasional Information not available 05/23/2022 How Many Years Have You Consumed Alcohol? 1 Information not available 05/23/2022 Are You Blind Or Do You Have Difficulty Seeing? No Information n ot available 09/15/2020 What Is Your Level Of Caffeine Consumption? Heavy Information not available 05/23/2022 How Much Tobacco Do You Chew? None Information not available 05/23/2022 In The 14 Days Before Symptom Onset, Have You Had Close Contact With A Laboratory-confirm ed COVID-19 While That Case Was Ill? No Information n ot available 05/23/2022 In The 14 Days Before Symptom Onset, Have You Had Close Contact With A Person Who Is Under Investigation For COVID-19 While That Person Was Ill? No Information not available 05/23/2022 Have You Been To An Area Known To Be High Risk For COVID-19? No Information not available 05/23/2022 Are You Deaf Or Do You Have Serious Difficulty Hearing? No Information not available 09/15/2020 What Type Of Diet Are You Following? REGULAR Information n ot available 09/15/2020 What Is The Highest Grade Or Level Of School You Have Completed Or The Highest Degree You Have Received? [id number] Information not available 05/23/2022 Are There Any Guns Present In Your Home? No Information not available 05/23/2022 Do You Use Protection During Sex? Usually Information not available 05/23/2022 Do You Use Your Seat Belt Or Car Seat Routinely? Yes Information not available 09/15/2020 Do You Have Smoke And Carbon Monoxide Detectors In Your Home? Yes Information not available 09/15/2020 How Much Tobacco Do You Smoke? No Information not available 05/23/2022 Do You Feel Stressed (tense, Restless, Nervous, Or Anxious, Or Unable To Sleep At Night)? [id number] Information not available 09/15/2020 Do You Use Any Illicit Or Recreational Drugs? No Information not available 09/15/2020 Do You Use Sunscreen Routinely? No Information not available 05/23/2022 Have You Used IV Drugs? No Information not available 05/23/2022 Sex: Unknown Functional Status Question Answer Note LastModified by Organizat ion Details LastModified Time Do you have difficulty walking or climbing stairs? No Information not available 05/23/2022 Are you able to walk? YESWOREST Information not available 09/15/2020 Are you able to care for yourself? Yes Information not available 05/23/2022 Do you have difficulty dressing or bathing? No Information not available 05/23/2022 What is your exercise level? Occasional Information not available 09/15/2020 Mental Status None recorded. Family History Relationship Description Onset Age of this Age Resolved Age Notes LastModified by Organization Details LastModified Time Mother Amyotrophic lateral sclerosis type 4 hbleier Not available 2022 16:12:51 Mother Hypertensive disorder Not available 2020 21:42:58 Maternal Grandmother Diabetes mellitus Not available 2020 21:43:13 Paternal Aunt Malignant neoplasm of ovary Not available 2020 21:43:28 Medical History Condition Response Allergies (Food, seasonal, environmental ) N Other Y Drug/Latex Allergies/Reactions N Blood Transfusion N Breast Cancer N Dermatologic Disorders N Lung Disease N Defects or Inherited Disease N Breast Problem N Gestational Diabetes N Hematologic disorders N Anesthesia Complications N History of STI Y Deep Vein Thrombosis N Polycystic ovary syndrome N Anxiety Disorder N Autoimmune disease N Arthritis N Polyps N Infertility N Acid Reflux (GERD) N History of abnormal pap N Cancer N Varicosities N Stroke N Neurologic/Epilepsy N Endometriosis N High Cholesterol N Fibromyalgia N Headaches N Kidney Disease N Heart Problems N Thyroid Problems N Kidney or Bladder Problems N GI Problems N Eating Disorder N Anemia N Art (IVF or FET) N Psychiatric Illness N Ovarian Cancer N Diabetes N Pulmonary (TB, Asthma) N Hepatitis/Liver Disease N No Past Medical History N Eczema N Urinary Tract Infection N Abuse/Domestic Violence N Asthma N Trauma/Violence N Depression/ depression N Heart Disease N Pre-Eclampsia N Hypertension N Osteoporosis N Thrombophilias N Gynecological History Statement/Question Response Abnormal Pap N Flow Moderate Date of Last Mammogram 04/24/2019 Date of LMP 08/17/2023 N Was last menstrual period normal Y STIs/STDs Y HPV Vaccine Y Duration of Flow (days) 5 12 Current Control Method BCPs Are cycles usually normal Y Frequency of Cycle (Q days) 28 Sexually Active? Y Menses Monthly Y Age of first menstrual cycle 12 Date of Last Pap Smear 09/29/2021 Sexual Problems? N LMP Definite N Obstetrics History GPAL:G 0 P 0 0 0 0 Type Value Living 0 Total 0 Past Encounters Encounter ID Performer Location Encounter Start Date Encounter Closed Date Diagnosis/Indication Diagnosis SNOMED-CT Code Diagnosis ICD10 Code Diagnosis Note [id number] Sobeida Lundberg , [facility] [address] [address] 09/16/2020 11:58:53 09/16/2020 14:10:48 Vaginitis [id number] N76.0 Rx sent for probable yeast Gynecologi c examination [id number] Z01.419 Take Calcium with Vitamin D 1200mg daily if not receiving in daily diet. It is strongly advised to have an annual flu shot and up can obtain at most pharmacies . If you have not had a TDap shot in the last 10 years you should obtain one as well. Discussed with patient & provided with informatio n regarding Gardisil vaccine to prevent the 4 strains for HPV that cause cervical cancer. Encourage safe sexual practices, to use condoms and limit partners if not already in a monogamous relationsh ip. Do monthly self breast exams. BRCA testing is now available for patients with strong genetic history of female cancer. If interested contact the office. Engage in daily exercise of low impact aerobic exercise 45-60 minutes 4-5 times weekly. Avoid tobacco, illicit drugs, and alcohol. This lifestyle behavior pattern will lead to less health conditions and longer life span. If BMI greater than 25 weight watchers or dietary consult advised. Pap smear is not recommende d prior to the age of 21. If you have any concerns, pelvic, or vaginal problems we can discuss testing. Patient received above instructio ns, and questions have been answered. If you have any questions please call or respond to this email. Patient was made aware of the patient portal and may obtain a paper copy of today's plan if desired. Primary pap next year STD sent [id number] Sobeida Lundberg [facility] [address] [address] 09/29/2021 12:00:14 09/29/2021 13:14:59 Gynecologic examination [id number] Z01.419 Take Calcium with Vitamin D 1200mg daily if not receiving in daily diet. It is strongly advised to have an annual flu shot and up can obtain at most pharmacies . If you have not had a TDap shot in the last 10 years you should obtain one as well. Discussed with patient & provided with informatio n regarding Gardisil vaccine to prevent the 4 strains for HPV that cause cervical cancer. Encourage safe sexual practices, to use condoms and limit partners if not already in a monogamous relationsh ip. Do monthly self breast exams. BRCA testing is now available for patients with strong genetic history of female cancer. If interested contact the office. Engage in daily exercise of low impact aerobic exercise 45-60 minutes 4-5 times weekly. Avoid tobacco, illicit drugs, and alcohol. This lifestyle behavior pattern will lead to less health conditions and longer life span. If BMI greater than 25 weight watchers or dietary consult advised. Pap smear is not recommende d prior to the age of 21. If you have any concerns, pelvic, or vaginal problems we can discuss testing. Patient received above instructio ns, and questions have been answered. If you have any questions please call or respond to this email. Patient was made aware of the patient portal and may obtain a paper copy of today's plan if desired. Pap sent STD Screen sent Genetic Screen discussed Colon Screen na Dexa Screen na Routine Labs UTD PCPMammo na Vaginitis [id number] N76.0 Z11.3 Treated for BV & Yeast [id number] Sobeida Lundberg [facility] [address] [address] 01/02/2022 09:40:33 01/02/2022 10:13:38 Cystic acne [id number] L70.0 Discussed all control options in great detail. Pt would like to start ocp. She is aware of the risks and benefits. She does not have any medical condition that is contraindi cated with the use of estrogen containing control. Pt will start her pills on the first sunday following the start of her period. She is aware it is not effective for control the first month. She is also aware of the importance of taking at the same time every day. Encouraged use of condoms as the pill does not protect against STD's. Will return in 3 months for med check. Consent was read and signed. Pt verbalized understand ing. RTO x 3mos med check Vaginitis [id number] N76.0 Z11.3 Treated for BV with sample of solosecSTD screen sent (two Sexual partners)S uspect BV on exam [id number] Sobeida Lundberg [facility] [address],[place] [address] 05/23/2022 16:12:11 05/23/2022 16:38:16 Cystic acne [id number] L70.0 Patient is here today for a medicaton check of control. She voices goals of therapy have been met with use of this therapy. She denies neg side effects. She is eating, drinking, sleeping well; moods are stable & periods are well regulated. Wishes to continue this method of BC. Appropriat e to continue this medication . RF sent x 1yr Time spent in visit is a total of 15 mins with at least 50% of visit consisting of counseling and review of plan of care. Vaginitis [id number] N76.0 Z11.3 Suspect BV with voiced complaints todayAlso on her menses. Sexually t ransmitted infectious disease [id number] A64 Wants STD screen for HSV.Has a friend who was exposed to another person that had HSV and worried she might have been exposed too. [id number] Sobeida Lundberg [facility] [address],[facility] [place] [address] 08/15/2022 14:21:50 08/15/2022 14:56:33 Irregular periods [id number] N92.6 She will start her Erin which she was taking in May for cystic acne/perio d regulation as previously prescribed since UPT is neg.Will f/u x 3mos med check Counseled: Discussed all control options in great detail. Pt would like to start ocp. She is aware of the risks and benefits. She does not have any medical condition that is contraindi cated with the use of estrogen containing control. Pt will start her pills on the first sunday following the start of her period. She is aware it is not effective for control the first month. She is also aware of the importance of taking at the same time every day. Encouraged use of condoms as the pill does not protect against STD's. Will return in 3 months for med check. Consent was read and signed. Pt verbalized understand ing. Time spent in visit is a total of 15 mins with at least 50% of visit consisting of counseling and review of plan of care. [id number] Sobeida Lundberg , [facility] [address],[facility] [place] [address] 08/24/2023 12:50:19 08/24/2023 13:33:42 Labial cyst [id number] N90.7 Today we observed a labial cyst left side right near the clitoral woods.It is currently draining and relieved a lot of discomfort for her; but she was afraid it is infected and worried it would not completely resolve.We decided on a course of abx, continue warm compresses and epsom soaks.Coun seled on medication R/B's, Most common side effects, & use. All questions were answered to patient satisfacti on. Declined need std screenrx sent Time spent in visit is a total of 22 mins with at least 50% of visit consisting of counseling and review of plan of care. Health Concerns Section Related Observation LastModified by Organization Detai ls LastModified Time None Recorded Concern Status LastModified by Organization Details LastModified Time None Recorded Advance Directives Directive N: Payers Encounter Date Sequence Insurance Name Policy Number Policy Heller Covered Member ID Heller Member ID Guarantor Name 09/29/2021 1 [place] [id number] Fredi Stephen [id number] Yudith Stephen 01/02/2022 1 [place] [id number] Fredi Stephen [id number] Yudith Stephen 05/23/2022 1 [place] [id number] Fredi Stephen [id number] Yudith Stephen 08/15/2022 1 [place] [id number] Fredi Stephen [id number] Yudith Stephen 08/24/2023 1 [place] [id number] Fredi Stephen [id number] Yudith Stephen Notes Date Note Type Note Provider Name and Address Organization Details Recorded Time 09/29/2021 text/html Annual GYNReport ed bypatient.Menstrual cycle:Normal menses Urinary symptoms:No hematuria; No incontinence Vulva:No genital lesion Vagina:Normal vaginal discharge Breast:No breast pain; No breast lump; No nipple discharge Current Contraception:Sexual ly active: high-risk behavior (Recently had EAB 2021 x 1 mos ago; Pharm EAB); Condoms Sexual complaints:No sexual complaints; No pain during intercourse; Normal libido Menopausal Symptoms:No menopausal symptoms; Normal vaginal lubrication Psychological symptoms:No depression; No anxiety; No PMDD Preventive measures:Encourage self breast examination; Encourage regular exercise; Encourage no tobacco use; Encourage regular mammograms starting age 40; Followed with Q3 year pap smear and high risk HPV typing Sobeida Lundberg, [facility]- [address], [place], [address], [facility] 09/29/2021 13:02:02 01/02/2022 text/html Vaginal/Vulvar ProblemReported bypatient.Severity:m ild Context:sexually active; multiple sexual partners Associated Symptoms:no vaginal itching; no vaginal irritation; no vaginal pain; no vulvar itching/irritation; no vulvar swelling/erythema; no vulvar pain; no vulvar lesions; no pelvic pain; no dyspareunia; no dysuria; no fever; no abdominal pain 1. Cystic acneDerm recommended she get on OCP for additional help with cystic acne.Regular monthly periodsNeg dysmenorrheaNeg Menorrhagia 2. Vaginitis+vag odor+d/cTwo sexual partners (same)Neg urinary or GI issuesNeg pelvic pain/abd pain/flank pain Sobeida Lundberg [facility] [address], [place], [address], [facility] 01/02/2022 10:09:59 05/23/2022 text/html Here today for medication check & would like HSV testing. Sobeida Lundberg [facility] [address], [place], [address], [facility] 05/23/2022 16:37:46 08/15/2022 text/html Here today to discuss irregular cycles. Previously prescribed OCP but stopped after first month.Just got off track. Periods have only been irregular the last couple of months.Occurring q24-29 daysFlow is moderateMinimal dysmenorrhea.Very light or moderate with in-between spotting.Taken multiple UPT's to ensure no and all negative. Neg pain of abd/pelvis/flankNeg urinary sx'sNeg GI sx'sNeg N/V/F/C/DNeg Vag d/c, odor, irritation, itchingNeg PCBNeg dyspareuinaNeg new sexual partner. Sobeida Lundberg [facility] [address], [place], [address], [facility] 08/15/2022 14:50:25 08/24/2023 text/html Here today for labial cyst that is now draining since this morning.Noticed a cyst that was swollen and hurt on labia minora near clitoral woods.She thought it was an ingrown hair.No recent grooming or new products. Neg pain of abd/pelvis/flankNeg urinary sx'sNeg GI sx'sNeg N/V/F/C/DNeg Vag d/c, odor, irritation, itchingMonogamous-sa me sexual partner Sobeida Lundberg [facility] [address], [place], [address], [facility] 08/24/2023 13:25:58 OBGyn Episode No OBEpisode recorded.
[2024-09-10 11:09] VITALS: BP 123/67; PULSE 60; RESP 16; TEMP 36.8; O2SAT 100; BMI 25.3
[2024-09-10] MEDS: LACTATED RINGERS 1,000 ML 150 ML IV CONT (11:21)
--- NOTE | 2024-09-10 11:30 | WPDANESEPPF ---
Anes - Initial Pre Proc Eval Procedure: Operation Date: 09/10/24 12:30 Proposed Procedures p Colonoscopy - Alden Peña MD s [facility] Hemorrhoid Treatment - Alden Peña MD Date/Time: 09/10/24 11:30 Surgeon: Alden Peña MD Pre Op Diagnosis: Anal Spasm, Sacrococcygeal disorders Patient Data Age: 24 Gender: F Height: 1.7 m Weight: 73.4 kg Last Vital Signs Temp 98.3 F 09/10/24 11:09 Pulse 60 09/10/24 11:09 Resp 16 09/10/24 11:09 BP 123/67 09/10/24 11:09 Pulse Ox 100 09/10/24 11:09 O2 Del Method Autopap 09/10/24 11:09 Allergies Allergy/AdvReac Type Severity Reaction Status Date / Time No Known Allergies Allergy Verified 09/10/24 11:06 Home Medications ?Medication ?Instructions ?Recorded ?Confirmed ?Type aripiprazole 5 mg tablet 5 mg PO DAILY 05/25/23 09/10/24 History Patient hx anesthesia problems: none Family hx anesthesia problems: none Results Review: All pre-operative results and documents have been reviewed as part of the pre-operative evaluation. [facility] Past Medical History Medical History Pain in the coccyx GERD (gastroesophageal reflux disease) Nausea and vomiting Edema of right foot Acute non-recurrent maxillary sinusitis Depression with anxiety Dietary counseling and surveillance (12/31/17) Family hx of ALS (amyotrophic lateral sclerosis) Pain in thoracic spine Routine physical examination Thoracolumbar back pain Viral upper respiratory infection Family History Family History Father Diabetes mellitus Mother ALS (amyotrophic lateral sclerosis) Sibling No problems noted. Social History Social History Smoking status: Current every day smoker Second hand tobacco smoke exposure: Yes Alcohol intake: current Substance use: current Substance use type: marijuana Other substance usage details: several times a day Do You Feel Safe in your Home?: Yes Lack of Transportation: No Lack of Food: Never True Current Housing: I Have Housing Concerned About Future Housing: No Difficulty Paying Gas/Electric Bills: No Difficulty Paying for Meds: No Currently Unemployed: No Difficulty w/ Childcare or Family Care: No Living arrangements: with family Occupation/Education: occupation Additional occupation/education comments: [employer] Gender identity (if verbalized by the patient): Female Spiritual care concerns: No Anes - Eval Final PreProcedure Day of Procedure 09/10/24 11:30 Patient weight: normal Heart: regular rate and rhythm Lungs: clear to auscultation Airway: Mallampati scale Neurological: alert and oriented Last oral intake: >/= 8 hours ASA classification: II Emergent: no Anesthetic plan: proceed Anesthesia type and monitoring: general GIVS and standard monitoring Results Review: All pre-operative results and documents have been reviewed as part of the pre-operative evaluation. Informed Consent: The patient's anesthetic plan and its attendant risks and benefits were discussed with the patient/family/POA. Questions were solicited and answers provided to the satisfaction of the patient/family/POA.
--- NOTE | 2024-09-10 12:41 | PM.HPGS ---
History of Present Illness History of Present Illness Consent: Risks, benefits, and alternatives have been discussed and questions answered. Patient agrees to proceed with procedure. Chief complaint: Anal Spasm, Sacrococcygeal disorders Narrative: Yudith Stephen is a 24 year old female with rectal pain, never had colonoscopy Review of Systems Review of Systems: All systems reviewed & are unremarkable except as noted in HPI and below PMFSH Past Medical History Medical History Pain in the coccyx GERD (gastroesophageal reflux disease) Nausea and vomiting Edema of right foot Acute non-recurrent maxillary sinusitis Depression with anxiety Dietary counseling and surveillance (12/31/17) Family hx of ALS (amyotrophic lateral sclerosis) Pain in thoracic spine Routine physical examination Thoracolumbar back pain Viral upper respiratory infection Family History Family History Father Diabetes mellitus Mother ALS (amyotrophic lateral sclerosis) Sibling No problems noted. Social History Social History Smoking status: Current every day smoker Second hand tobacco smoke exposure: Yes Alcohol intake: current Substance use: current Substance use type: marijuana Other substance usage details: several times a day Do You Feel Safe in your Home?: Yes Lack of Transportation: No Lack of Food: Never True Current Housing: I Have Housing Concerned About Future Housing: No Difficulty Paying Gas/Electric Bills: No Difficulty Paying for Meds: No Currently Unemployed: No Difficulty w/ Childcare or Family Care: No Living arrangements: with family Occupation/Education: occupation Additional occupation/education comments: [employer] Gender identity (if verbalized by the patient): Female Spiritual care concerns: No Meds Home Medications and Allergies Home Medications ?Medication ?Instructions ?Recorded ?Confirmed ?Type aripiprazole 5 mg tablet 5 mg PO DAILY 05/25/23 09/10/24 History Allergies Allergy/AdvReac Type Severity Reaction Status Date / Time No Known Allergies Allergy Verified 09/10/24 11:06 Vital Signs Vital Signs - 24 hr 09/10/24 11:09 Temperature 98.3 F Pulse Rate 60 Respiratory Rate 16 Blood Pressure 123/67 Pulse Oximetry 100 Oxygen Delivery Autopap Exam Const: General: comfortable and no acute distress HENMT: Face/Nose/Sinus: Normal nares present Eyes: General: appearance normal, both eyes and all related structures Neck: Neck: no JVD Resp: Auscultation: clear to auscultation bilaterally Cardio: Rate: regular rate Rhythm: regular rhythm GI: Inspection: non-distended GI Palp: Yes Soft to palpation Skin: General skin exam: normal color Neuro: General: gait normal Speech: normal speech Extrem: General: normal to inspection Psych: Mental Status: mental status grossly normal Assessment and Plan Assessment and plan (1) Rectal pain: Code(s): K62.89 - Other specified diseases of anus and rectum Status: Acute Assessment and Plan: colonoscopy
[2024-09-10 12:43] VITALS: BP 115/66; PULSE 78; RESP 18; O2SAT 98
[2024-09-10 12:44] LABS: BEDSIDEPREGUCG Negative (Negative)
[2024-09-10 12:53] VITALS: BP 121/86; PULSE 62; RESP 18; O2SAT 99
[2024-09-10 13:03] VITALS: BP 118/83; PULSE 58; RESP 18; O2SAT 100
== END 2024-09-10 13:15 | disposition home or self-care (01) ==
PROVIDERS: PCP Family Medicine; Referring Provider Nurse Practitioner; Visit Provider Internal Medicine Gastroenterology
PROC: 0DJD8ZZ Inspection of Lower Intestinal Tract, Via Natural or Artificial Opening Endoscopic (ICD-10-PCS; CPT 45378; principal; 2024-09-10 12:30)
DX: K62.89 Other specified diseases of anus and rectum (principal); D12.2 Benign neoplasm of ascending colon; F17.200 Nicotine dependence, unspecified, uncomplicated; F12.90 Cannabis use, unspecified, uncomplicated
CPT/HCPCS: 45385; 88305; J2003; J2704; J7120

== ENCOUNTER 2025-01-09 16:33 | Emergency (ER) | payer BC, SELFPAY ==
--- OUTSIDE RECORDS SUMMARY | 2025-01-09 16:36 | XMS_ITS | Clinical Summary ---
Author Organization [facility] Care Team Providers Care Blind Escort Name Role Phone Unavailable Primary Care Provider [...]
--- OUTSIDE RECORDS SUMMARY | 2025-01-09 16:36 | XMS_ITS | Patient Health Record ---
Author Organization [facility] [employer] [facility] Address [address] [place] [address] Care Team Providers Care Photo Studio Assistant Name Role Phone Destin Munoz Unavailable [phone] Reason For Referral No Information Medications Medication SIG (Take, Route, Frequency, Duration) Notes Start Date End Date Status Isoniazid 300 MG Tablet Oral 02/03/2021 Active Gabapentin 100 MG Capsule Oral 02/03/2021 Active Adapalene 0.3 % Gel External 02/03/2021 Active prednisoLONE Acetate 1 % Suspension Ophthalmic 02/03/2021 Active Benzonatate 100 MG Capsule Oral 02/03/2021 Active Propranolol HCl 10 MG Tablet Oral 02/03/2021 Active rifAMPin 300 MG Capsule Oral 02/03/2021 Active Ofloxacin 0.30% Solution Ophthalmic 02/03/2021 Active Cyclopentolate HCl 1 % Solution Ophthalmic 02/03/2021 Active Ketorolac Tromethamine 0.5 % Solution Ophthalmic 02/03/2021 Active Clindamycin Phos-Benzoyl Perox 1.2-5 % Gel External 02/03/2021 Active Fluconazole 200 MG Tablet Oral 02/03/2021 Active Spironolactone 100 MG Tablet Oral 02/03/2021 Active EYE ALLERGY ITCH REL 0.2% OPHTH UVALDO *Reorder from Yunait for eRx and Interaction Alerts* 02/03/2021 Active Vitamin B-6 50 mg Tablet Oral 02/03/2021 Active Mirtazapine 30 MG Tablet Oral 02/03/2021 Active Immunizations Vaccine Route Administration Date Status Comme nts DTaP Unknown 2000 Administered DTaP Unknown 2000 Administered DTaP Unknown 2000 Administered DTaP Unknown 11/21/2001 Administered DTaP Unknown 08/24/2005 Administered Hep A, ped/adol, 2 dose Unknown 07/22/2014 Administered Hep A, ped/adol, 2 dose Unknown 08/05/2015 Administered Hep B, adolescent or pediatr ic (11-19), 3 dose schedule Unknown 2000 Administered Hep B, adolescent or pediatr ic (11-19), 3 dose schedule Unknown 2000 Administered Hep B, adolescent or pediatr ic (11-19), 3 dose schedule Unknown 02/20/2001 Administered Hib (PRP-OMP), 3 dose schedule Unknown 2000 Admin istered Hib (PRP-OMP), 3 dose schedule Unknown 2000 Admin istered Hib (PRP-OMP), 3 dose schedule Unknown 2000 Admin istered Hib (PRP-OMP), 3 dose schedule Unknown 11/21/2001 Admin istered HPV (human papillomavirus), quadrivalent, 3 dose schedule Unknown 07/22/2014 Administered HPV9 (human papillomavirus), nonavalent Unknown 08/05/2015 Administered IPV Unknown 2000 Administered IPV Unknown 2000 Administered IPV Unknown 11/21/2001 Administered IPV Unknown 08/24/2005 Administered Meningococcal MCV4P Unknown 07/22/2014 Administered MMR Unknown 08/19/2001 Administered MMR Unknown 08/24/2005 Administered Pneumococcal conjugate PCV 7 Unknown 2000 Adminis tered Pneumococcal conjugate PCV 7 Unknown 2000 Adminis tered Pneumococcal conjugate PCV 7 Unknown 2000 Adminis tered Pneumococcal conjugate PCV 7 Unknown 08/19/2001 Adminis tered Tdap Unknown 11/14/2011 Administered Varicella Unknown 05/20/2001 Administered Varicella Unknown 11/14/2011 Administered Social History Social History Additional Details Category Social Info Options Details Migrated Social History Migrated Social History Alcohol Intake: None 03/09/2020,Tobacco Years: Never smoker 03/09/2020,Smoking Status: 0 03/09/2020 Plan Of Treatment No Information Insurance Providers Payer Name Payer Address Payer Phone Subscriber Number Group Number Insured Name Patient Relationship to Insured Coverage Start Date Coverage End Date [employer] [address] [place] [address] [id number] PACHECO WESLEY Child - Insured has Financial Responsibility
[2025-01-09 16:37] VITALS: BP 108/68; PULSE 64; RESP 20; TEMP 36.4; O2SAT 100
[2025-01-09 17:55] LABS: BEDSIDEPREGUCG Positive (Negative)
[2025-01-09 17:57] LABS: Hematocrit 39.5 % (37.0-47.0); Hemoglobin 13.5 g/dL (12.0-15.0); Mean Corpuscular HGB Conc 34.2 g/dl (32-36); Mean Corpuscular Hemoglobin 32.0 pg (26-34); Mean Corpuscular Volume 93.6 fl (80-100); Platelet Count Result 356 k/mm3 (150-375); Red Blood Count 4.22 M/mm3 (4.2-5.4); White Blood Count 21.8 K/mm3 (4.5-10.0)
[2025-01-09 18:05] LABS: Add Urine Microscopic? YES; Appearance Urine Cloudy (Clear); Glucose Urine UA Negative (Negative); Leukocyte Esterase Ur 2+ LEU/UL (Negative); Need Manual Microscopic Reviewed; Nitrate Urine Negative (Negative); Specific Grav Ur 1.032 (1.001-1.035)
[2025-01-09 18:08] LABS: Alanine Aminotransferase 29 U/L (6-35); Albumin Level 5.2 g/dL (3.5-5.1); Alkaline Phosphatase 126 U/L (38-126); Anion Gap 15 mmol/L (4-12); Aspartate Amino Transferase 32 U/L (14-36); Bilirubin,Total 0.6 mg/dL (0.2-1.3); Blood Urea Nitrogen 14 mg/dL (7-17); Calcium 10.1 mg/dL (8.4-10.2); Carbon Dioxide 20 mmol/L (22-30); Chloride 106 mmol/L (98-107); Estimated CRCL calculation 104 ml/min; Estimated Glomerular Filt Rate > 60; Glucose 146 mg/dL (65-110); Lipase 49 U/L (23-300); Potassium 4.2 mmol/L (3.4-5.0); Sodium 141 mmol/L (137-145); Total Protein 8.8 g/dL (6.3-8.2)
--- OUTSIDE RECORDS SUMMARY | 2025-01-09 18:16 | XMS_ITS | Clinical Summary ---
Author Organization [facility] Care Team Providers Care Submersible Pilot Name Role Phone Unavailable Primary Care Provider [...]
--- OUTSIDE RECORDS SUMMARY | 2025-01-09 18:16 | XMS_ITS | Clinical Summary ---
Author Organization [facility] [place] Address [address] [place] [address] Care Team Providers Care Lead Operator Name Role Phone Noe Shelley MD Primary Care Provider [phone] MD Unavailable [phone] Source Comments [facility],non-owned Affiliates and Associated Physician Practices is amultiple site organization consisting of ambulatory clinics and hospital sitesin [place], [place], [place] and [place]. This disclosure is being madepursuant to the Care Everywhere program and may not contain all information available regarding this patient. Last updated 18.[facility] Allergies No known active allergies Medications * [...] on file Legal Sex Female 11:13 AM [employer] Gender Identity Not on file Sexual Orientation [...] 12:49 PM CDT Height 167.6 cm (5' 6) 09/24/2023 12:49 PM CDT Body Mass Index 24.21 09/24/2023 12:49 PM CDT Plan of Treatment Health Maintenance Due Date Last Done Comments HPV VACCINE (1 - 3-dose series) 2015 DTAP/TDAP/TD VACCINES (3 - Tdap) 2019 08/24/2005, 11/21/2001 HEPATITIS B VACCINE (1 of 3 - 19+ 3-dose series) 2019 PAP SMEAR 2021 CHLAMYDIA/GONORRHEA SCREENING 08/16/2023, 01/02/2022, 09/16/2020 COVID-19 VACCINE (1 - 2023-2 5 season) 2024 DEPRESSION SCREENING 05/07/2024 INFLUENZA VACCINE (#1) 2025 ZOSTER VACCINE (1 of 2) 2050 [...] josy Non-reac tive 10/07/2020 5:21 PM CDT [facility] Comment:Hepatitis C Antibody screen indicates [...] ORDERABLES Fi nal Result Performing Organization Address [facility]/ZIP Co de Phone Number [address] [address], [place] [phone] * HIV-1 HIV-2 ANTIGEN/ANTIBODY (09/17/2020 10:53 AM CDT) HIV Antigen/Antibod y 1 & 2 Non-reacti ve Non-react josy 09/17/2020 12:23 PM CDT [facility] Comment:Neither HIV-1 p24 An tigen nor HIV-1/HIV-2 Antibodies are detected. Blood BLOOD SPECIMEN / Unknown Lab Venipuncture / Unknown 09/17/2020 10:53 AM CDT 09/17/2020 11:36 AM CDT us Bren Peguero MD LAB - HEMATOLOGY ORDERABLES Fin al Result Performing Organization Address [facility]/ZIP Co de Phone Number [address] [address], [place] [phone] from Last 3 Months or Most Recently Relevant to Health Maintenance Insurance [employer] [facility] SELF PAY NO INSURANCE Member Subscriber Plan / Payer (Ef fective for All Dates) Name:Sienna Stephen Member ID:Not on file Relation to Subscriber:Not on file Name:SIENNA STEPHEN Subscriber ID:Not on file (Home) Address: [address] [place] [place] [id number] Payer ID:Not on file Group ID:Not on file Type:Self Pay Address: [place], [place] ANTHEM ANTHEM * Guarantor: SIENNA STEPHEN Account Type Relation to Patient Date of Phone Billing Address Personal/Family [phone]/[facility] SELF PAY NO INSURANCE Member Subscriber Plan / Payer (Ef fective for All Dates) Name:Sienna Stephen Member ID:Not on file Relation to Subscriber:Not on file Name:SIENNA STEPHEN Subscriber ID:Not on file Address: [address] [place] [address] Payer ID:Not on file Group ID:Not on file Type:Self Pay Address: [place], [place] * Guarantor: SIENNA STEPHEN Account Type Relation to Patient Date of Phone Billing Address Personal/Family [address] [place] [address]/[facility] [place] SELF PAY NO INSURANCE Member Subscriber Plan / Payer (Ef fective for All Dates) Name:Liborio Stephenlie Member ID:Not on file Relation to Subscriber:Not on file Name:LIBORIO STEPHENLIE Subscriber ID:Not on file Address: [address] [place] [address] Payer ID:Not on file Group ID:Not on file Type:Self Pay Address: [place], [place] * Guarantor: SIENNA STEPHEN Account Type Relation to Patient Date of Phone Billing Address Personal/Family [address] [place] [address]/[facility] [place] SELF PAY NO INSURANCE Member Subscriber Plan / Payer (Ef fective for All Dates) Name:Sienna Stephen Member ID:Not on file Relation to Subscriber:Not on file Name:SIENNA STEPHEN Subscriber ID:Not on file Address: [address] [place] [address] Payer ID:Not on file Group ID:Not on file Type:Self Pay Address: [place], [place] Care Teams Lead Operator Relationship Specialty Start Date End Date Noe Shelley MD [address] [place] [address] PCP - General Family Medicine 09/10/[address] MD [phone] [address] Pediatrics 09/10/20
[2025-01-09 18:19] LABS: Lymphocytes Absolute Manual 1.09 K/mm3 (1.1-4.5); Lymphocytes Percent Manual 5.0 % (18-44); Monocytes Absolute Manual 0.21 K/mm3 (0.1-0.90); Monocytes Percent Manual 1 % (3-9); Neutrophils Percent Manual 94 % (46-73); Total Cells Counted 100
[2025-01-09 18:20] LABS: Schistocytes None Seen
[2025-01-09 18:27] LABS: Beta HCG Quantitative 1708.20 mIU/ML
[2025-01-09 18:31] LABS: Band Neutrophils Percent 0 % (0-6); Neutrophils Absolute Manual 20.49 K/mm3 (1.3-6.7)
--- NOTE | 2025-01-09 18:35 | ED_ITS ---
HPI - Nausea/Vomiting/Diarrhea General Chief complaint: Nausea/Vomiting/Diarrhea <Henrique Gil APRN - Last Filed: 01/09/25 19:02> Stated complaint: nausea, vomiting, 4 weeks <Henrique Gil APRN - Last Filed: 01/09/25 19:02> Time Seen by Provider: 01/09/25 18:02 <Henrique Gil APRN - Last Filed: 01/09/25 19:02> Source: patient and RN notes reviewed <Henrique Gil APRN - Last Filed: 01/09/25 19:02> Mode of arrival: ambulatory <Henrique Gil APRN - Last Filed: 01/09/25 19:02> Limitations: no limitations <Henrique Gil APRN - Last Filed: 01/09/25 19:02> History of Present Illness HPI Narrative: 24-year-old female presents Express Care complaining of nausea and vomiting since today. Patient is 4 weeks . . Patient says she has an appoint with her OBGYN history had an ultrasound performed that noted that she was . She recently had a positive test. Last menstrual period was approximately 2-3 months ago patient states. Patient says she has been doing with nausea and vomiting the last 2 weeks likely morning sickness. However today patient states she is unable to keep anything down. Patient says she has tried some dulu-lyv-tnqjpve morning sickness medications but has had no relief with it today. Patient denies any abdominal pain, fevers, urinary symptoms, diarrhea, constipation, vaginal bleeding, or any other symptoms. < Henrique Gil APRN - Last Filed: 01/09/25 19:02> Related Data Home medications: Home Medications ?Medication ?Instructions ?Recorded ?Confirmed ?Last Taken ?Type aripiprazole 5 mg tablet 5 mg PO DAILY 05/25/2309/1009/09/24 History <Henrique Gil APRN - Last Filed: 01/09/25 19:02> Allergies/Adverse reactions: Allergies Allergy/AdvReac Type Severity Reaction Status Date / Time No Known Allergies Allergy Verified 01/09/25 16:34 <Henrique Gil APRN - Last Filed: 01/09/25 19:02> Review of Systems 2 Review of Systems: CONSTITUTIONAL: Denies fever, chills, or sweats. EYES: Denies visual changes, redness, or discharge. ENT: Denies rhinorrhea, congestion, sore throat, or otalgia. CARDIOVASCULAR: Denies chest pain, palpitations, or edema. RESPIRATORY: Denies cough or dyspnea. GASTROINTESTINAL: Denies abdominal pain, or diarrhea. Positive for nausea and vomiting. GENITOURINARY: Denies dysuria, vaginal bleeding, or hematuria. SKIN: Denies rash or itching. MUSCULOSKELETAL: Denies back pain, joint pain, or myalgia. NEUROLOGIC: Denies headache, numbness, or weakness. PSYCHIATRIC: Denies anxiety or depression. All other systems reviewed are negative, except as documented in HPI. <Henrique Gil APRN - Last Filed: 01/09/25 19:02> [facility] Past Medical History Medical History: Medical History Pain in the coccyx GERD (gastroesophageal reflux disease) Nausea and vomiting Edema of right foot Acute non-recurrent maxillary sinusitis Depression with anxiety Dietary counseling and surveillance (12/31/17) Family hx of ALS (amyotrophic lateral sclerosis) Pain in thoracic spine Routine physical examination Thoracolumbar back pain Viral upper respiratory infection <Henrique Gil APRN - Last Filed: 01/09/25 19:02> Family History Family History: Family History Father Diabetes mellitus Mother ALS (amyotrophic lateral sclerosis) Sibling No problems noted. <Henrique Gil APRN - Last Filed: 01/09/25 19:02> Social History Social History: Social History Smoking status: Current every day smoker Second hand tobacco smoke exposure: Yes Alcohol intake: current Substance use: current Substance use type: marijuana Other substance usage details: several times a day Do You Feel Safe in your Home?: Yes Lack of Transportation: No Lack of Food: Never True Current Housing: I Have Housing Concerned About Future Housing: No Difficulty Paying Gas/Electric Bills: No Difficulty Paying for Meds: No Currently Unemployed: No Difficulty w/ Childcare or Family Care: No Living arrangements: with family Occupation/Education: occupation Additional occupation/education comments: [employer] Gender identity (if verbalized by the patient): Female Spiritual care concerns: No <Henrique Gil APRN - Last Filed: 01/09/25 19:02> Comments At the time of my signature, I reviewed and agree with the nursing past medical, surgical, social, and family history. There is no relevant family history pertinent to the patient complaint. <Henrique Gil APRN - Last Filed: 01/09/25 19:02> Exam 2 Narrative: GENERAL: This is a well-nourished, well-developed adult, in no apparent distress. They are non ill-appearing, nontoxic appearing. HEAD: normocephalic, atraumatic. EYES: Sclera clear/white. Conjunctiva normal. Vision is grossly intact. Extraocular movements intact EARS: External ears normal, Hearing grossly intact. NOSE: External nose normal THROAT: Mucous membranes moist, NECK: Neck supple, CARDIOVASCULAR: Regular rate and rhythm without murmurs, gallops, or rubs. RESPIRATORY: Clear to auscultation. Breath sounds equal bilaterally. No wheezes, rales, or rhonchi. GASTROINTESTINAL: Abdomen soft, non-tender, nondistended. Bowel sounds are active. No hepato-splenomegaly, or palpable masses. No guarding or rigidity. No rebound tenderness. SKIN: warm, Dry, intact with no suspicious lesions or rash, good texture and turgor. NEURO: awake, alert, and oriented to person, place and time. There were no obvious focal neurologic abnormalities. EXTREMITIES: No joint tenderness, effusion, or edema noted. <Henrique Gil APRN - Last Filed: 01/09/25 19:02> Course Course Emergency Course: Portions of this record may have been created with voice recognition software <Henrique Gil APRN - Last Filed: 01/09/25 19:02> Vital Signs Vital signs: Vital Signs Temperature 36.4 C L 01/09/25 16:37 Pulse Rate 64 01/09/25 16:37 Respiratory Rate 20 01/09/25 16:37 Blood Pressure 108/68 01/09/25 16:37 Pulse Oximetry 100 01/09/25 16:37 Oxygen Delivery Room Air 01/09/25 16:37 Temperature 37.2 C 01/09/25 19:49 Pulse Rate 99 01/09/25 19:49 Respiratory Rate 18 01/09/25 19:49 Blood Pressure 129/77 01/09/25 19:49 Pulse Oximetry 99 01/09/25 19:49 Oxygen Delivery Room Air 01/09/25 16:37 Reviewed <Henrique Gil, HYDROMETALLURGICAL ENGINEER - Last Filed: 01/09/25 19:02> Vital Signs Temperature 36.4 C L 01/09/25 16:37 Pulse Rate 64 01/09/25 16:37 Respiratory Rate 20 01/09/25 16:37 Blood Pressure 108/68 01/09/25 16:37 Pulse Oximetry 100 01/09/25 16:37 Oxygen Delivery Room Air 01/09/25 16:37 Temperature 37.2 C 01/09/25 19:49 Pulse Rate 99 01/09/25 19:49 Respiratory Rate 18 01/09/25 19:49 Blood Pressure 129/77 01/09/25 19:49 Pulse Oximetry 99 01/09/25 19:49 Oxygen Delivery Room Air 01/09/25 16:37 <Vanessa Umaña, HYDROMETALLURGICAL ENGINEER - Last Filed: 01/09/25 20:15> MDM - Nausea/Vomiting/Diarrhea MDM Narrative Medical decision making narrative: Leukocytosis present on CBC. Likely from vomiting. Chemistry with mildly elevated gap decreased bicarb normal kidney function, otherwise unremarkable chemistry. Urine does show evidence urinary tract infection. Patient denies any urinary symptoms, no CVA tenderness, no abdominal pain. No peritoneal findings on exam. Patient reports feeling better after Reglan and IV fluids. Since patient is will go ahead and treat the urinary tract infection with antibiotics. Discussed physical exam findings. Advised supportive measures and signs/symptoms to go to the ER. Pt is appropriate for outpt treatment and f/u. <Henrique Gil, HYDROMETALLURGICAL ENGINEER - Last Filed: 01/09/25 19:02> Leukocytosis present on CBC. Likely from vomiting. Chemistry with mildly elevated gap decreased bicarb normal kidney function, otherwise unremarkable chemistry. Urine does show evidence urinary tract infection. Patient denies any urinary symptoms, no CVA tenderness, no abdominal pain. No peritoneal findings on exam. Patient reports feeling better after Reglan and IV fluids. Since patient is will go ahead and treat the urinary tract infection with antibiotics. Discussed physical exam findings. Advised supportive measures and signs/symptoms to go to the ER. Pt is appropriate for outpt treatment and f/u. 1999-Spoke with OBGYN, Dr. Anguiano, who would like patient to receive IV ceftriaxone here in the ER before discharge. He requests patient also be sent home with oral antibiotics. Patient should follow-up with them as an outpatient. Patient Education/Shared MDM: Results of lab work shared with patient. She endorses improvement of symptoms following medication administration. Patient strongly advised to maintain hydration status upon discharge and follow-up with OBGYN as planned. She will be discharged home with a prescription for Keflex and Reglan. Strict return precautions provided. Patient verbalized understanding and is in agreement with plan. Vital signs stable at time of discharge. All questions answered. <Vanessa Umaña, HYDROMETALLURGICAL ENGINEER - Last Filed: 01/09/25 20:15> Differential Diagnosis Differential diagnosis: Likely dehydration and other (Hyperemesis gravidarum) <Henrique Gil APRN - Last Filed: 01/09/25 19:02> Lab Data Attestation: I reviewed the patient's lab results. <Henrique Gil APRN - Last Filed: 01/09/25 19:02> Result diagrams: 01/09/25 17:47 01/09/25 17:47 <Henrique Gil HYDROMETALLURGICAL ENGINEER - Last Filed: 01/09/25 19:02> Labs: Lab Results 01/09/25 01/09/25 01/09/25 Range/Units 17:47 17:50 17:53 WBC 21.8 H (4.5-10.0) K/mm3 RBC 4.22 (4.2-5.4) M/mm3 Hgb 13.5 (12.0-15.0) g/dL Hct 39.5 (37.0-47.0) % MCV 93.6 (80-100) fl MCH 32.0 (26-34) pg MCHC 34.2 (32-36) g/dl RDW 12.8 (11.5-14.5) % Plt Count 356 (150-375) k/mm3 MPV 9.6 (7.4-10.4) fl Immature Gran % (Auto) Not Reportable Neut % (Auto) Not Reportable Lymph % (Auto) Not Reportable Cole % (Auto) Not Reportable Eos % (Auto) Not Reportable Baso % (Auto) Not Reportable Lymph # (Auto) Not Reportable Cole # (Auto) Not Reportable Eos # (Auto) Not Reportable Baso # (Auto) Not Reportable Abs Immat Gran (auto) Not Reportable Absolute Neuts (auto) Not Reportable Absolute Nucleated RBC Not Reportable Total Counted 100 Neutrophils % (Manual) 94 H (46-73) % Band Neutrophils % 0 (0-6) % Lymphocytes % (Manual) 5.0 L (18-44) % Monocytes % (Manual) 1 L (3-9) % Nucleated RBC % Not Reportable Abs Neuts (Manual) 20.49 H (1.3-6.7) K/mm3 Abs Lymphs (Manual) 1.09 L (1.1-4.5) K/mm3 Abs Monocytes (Manual) 0.21 (0.1-0.90) K/mm3 Platelet Estimate Adequate (Adequate) Clumped Platelets Present Schistocytes None seen Sodium 141 (137-145) mmol/L Potassium 4.2 (3.4-5.0) mmol/L Chloride 106 (98-107) mmol/L Carbon Dioxide 20 L (22-30) mmol/L Anion Gap 15 H (4-12) mmol/L BUN 14 D (7-17) mg/dL Creatinine 0.67 L (0.7-1.0) mg/dL Estim Creat Clear Calc 104 ml/min Estimated GFR > 60 (59 - ) Glucose 146 H (65-110) mg/dL Calcium 10.1 (8.4-10.2) mg/dL Total Bilirubin 0.6 (0.2-1.3) mg/dL AST 32 (14-36) U/L ALT 29 (6-35) U/L Alkaline Phosphatase 126 (38-126) U/L Total Protein 8.8 H (6.3-8.2) g/dL Albumin 5.2 H (3.5-5.1) g/dL Lipase 49 (23-300) U/L Beta HCG, Quant 1708.20 mIU/ML Urine Color Dark yellow (Yellow) Urine Appearance Cloudy H (Clear) Urine pH 6.0 (5.0-9.0) Ur Specific Cullen 1.032 (1.001-1.035) Urine Protein 2+ H (Negative) mg/dL Urine Glucose (UA) Negative (Negative) mg/dL Urine Ketones 4+ H (Negative) mg/dL Ur Blood (Man) Negative (Negative) Urine Nitrate Negative (Negative) Urine Bilirubin Negative (Negative) Urine Urobilinogen 1.0 (<2.0) mg/dL Add Ur Microanalysis Reviewed Leukocyte Esterase Rfl 2+ H (Negative) OLEG/UL Urine RBC 6-10 H (0-2) /hpf Urine WBC 51-100 H (0-3) /hpf Ur Squamous Epith Cells Many H (Few) /hpf Urine Bacteria 4+ H /hpf Urine Casts 6-10 POC Urine HCG, Qual Positive (Negative) <Henrique Gil APRN - Last Filed: 01/09/25 19:02> Lab Results 01/09/25 01/09/25 01/09/25 Range/Units 17:47 17:50 17:53 WBC 21.8 H (4.5-10.0) K/mm3 RBC 4.22 (4.2-5.4) M/mm3 Hgb 13.5 (12.0-15.0) g/dL Hct 39.5 (37.0-47.0) % MCV 93.6 (80-100) fl MCH 32.0 (26-34) pg MCHC 34.2 (32-36) g/dl RDW 12.8 (11.5-14.5) % Plt Count 356 (150-375) k/mm3 MPV 9.6 (7.4-10.4) fl Immature Gran % (Auto) Not Reportable Neut % (Auto) Not Reportable Lymph % (Auto) Not Reportable Cole % (Auto) Not Reportable Eos % (Auto) Not Reportable Baso % (Auto) Not Reportable Lymph # (Auto) Not Reportable Cole # (Auto) Not Reportable Eos # (Auto) Not Reportable Baso # (Auto) Not Reportable Abs Immat Gran (auto) Not Reportable Absolute Neuts (auto) Not Reportable Absolute Nucleated RBC Not Reportable Total Counted 100 Neutrophils % (Manual) 94 H (46-73) % Band Neutrophils % 0 (0-6) % Lymphocytes % (Manual) 5.0 L (18-44) % Monocytes % (Manual) 1 L (3-9) % Nucleated RBC % Not Reportable Abs Neuts (Manual) 20.49 H (1.3-6.7) K/mm3 Abs Lymphs (Manual) 1.09 L (1.1-4.5) K/mm3 Abs Monocytes (Manual) 0.21 (0.1-0.90) K/mm3 Platelet Estimate Adequate (Adequate) Clumped Platelets Present Schistocytes None seen Sodium 141 (137-145) mmol/L Potassium 4.2 (3.4-5.0) mmol/L Chloride 106 (98-107) mmol/L Carbon Dioxide 20 L (22-30) mmol/L Anion Gap 15 H (4-12) mmol/L BUN 14 D (7-17) mg/dL Creatinine 0.67 L (0.7-1.0) mg/dL Estim Creat Clear Calc 104 ml/min Estimated GFR > 60 (59 - ) Glucose 146 H (65-110) mg/dL Calcium 10.1 (8.4-10.2) mg/dL Total Bilirubin 0.6 (0.2-1.3) mg/dL AST 32 (14-36) U/L ALT 29 (6-35) U/L Alkaline Phosphatase 126 (38-126) U/L Total Protein 8.8 H (6.3-8.2) g/dL Albumin 5.2 H (3.5-5.1) g/dL Lipase 49 (23-300) U/L Beta HCG, Quant 1708.20 mIU/ML Urine Color Dark yellow (Yellow) Urine Appearance Cloudy H (Clear) Urine pH 6.0 (5.0-9.0) Ur Specific Cullen 1.032 (1.001-1.035) Urine Protein 2+ H (Negative) mg/dL Urine Glucose (UA) Negative (Negative) mg/dL Urine Ketones 4+ H (Negative) mg/dL Ur Blood (Man) Negative (Negative) Urine Nitrate Negative (Negative) Urine Bilirubin Negative (Negative) Urine Urobilinogen 1.0 (<2.0) mg/dL Add Ur Microanalysis Reviewed Leukocyte Esterase Rfl 2+ H (Negative) OLEG/UL Urine RBC 6-10 H (0-2) /hpf Urine WBC 51-100 H (0-3) /hpf Ur Squamous Epith Cells Many H (Few) /hpf Urine Bacteria 4+ H /hpf Urine Casts 6-10 POC Urine HCG, Qual Positive (Negative) <Vanessasara Umaña APRN - Last Filed: 01/09/25 20:15> Critical Care Time Critical Care Time Critical Care Time: No <Henrique Gil APRN - Last Filed: 01/09/25 19:02> Discharge Plan Discharge Clinical Impression: Nausea and vomiting during , Dehydration, mild, Urinary tract infection affecting care of mother in first trimester, antepartum <Henrique Gil APRN - Last Filed: 01/09/25 19:02> Patient Disposition: Home <Henrique Gil APRN - Last Filed: 01/09/25 19:02> Condition: Stable <Henrique Gil APRN - Last Filed: 01/09/25 19:02> Instructions: Antibiotic Form, Nausea and Vomiting in (ED), Urinary Tract Infection in (ED) <Henrique Gil APRN - Last Filed: 01/09/25 19:02> Additional Instructions: Please return to the ER with any worsening symptoms. Follow-up with OBGYN as planned. Take all medications as prescribed, including regularly scheduled medications. Complete your full dose of antibiotics. Remember to drink lots of water. <Henrique Gil APRN - Last Filed: 01/09/25 19:02> Patient Language: Urdu <Henrique Gil APRN Last Filed: 01/09/25 19:02> Prescriptions: New metoclopramide HCl [Reglan] 10 mg tablet 10 mg PO Q6H PRN (Reason: nausea and vomiting) Qty: 30 0RF cephalexin 500 mg capsule 500 mg PO Q8H 5 Days Qty: 15 0RF No Action aripiprazole 5 mg tablet 5 mg PO DAILY <Henrique Gil APRN - Last Filed: 01/09/25 19:02> Follow-up/Referrals: Cortez Anguiano MD [Physician, [employer]] Referral Note: Noe Alvarado MD [Primary Care Provider, Family Practice] <Henrique Gil APRN - Last Filed: 01/09/25 19:02> Stand Alone Forms: Work/School Release IP <Henrique Gil APRN - Last Filed: 01/09/25 19:02> Time of Disposition: 20:14 <Henrique Gil APRN - Last Filed: 01/09/25 19:02> 20:14 <Vanessa Umaña APRN - Last Filed: 01/09/25 20:15>
[2025-01-09] MEDS: METOCLOPRAMIDE HCL INJ 10 MG/2 ML VIAL IV PUSH (18:36)
[2025-01-09] MEDS: DEXTROSE 5%/0.9% SOD CHL 1,000 ML 999 ML IV CONT (18:36)
[2025-01-09 19:49] VITALS: BP 129/77; PULSE 99; RESP 18; TEMP 37.2; O2SAT 99
[2025-01-09] MEDS: cefTRIAXone 1 GM in SODIUM CHLORIDE 0.9% IV 50 ML 100 ML IVPB (20:21)
[2025-01-09 20:46] VITALS: BP 118/74; PULSE 99; RESP 16; O2SAT 97
== END 2025-01-09 20:46 | disposition home or self-care (01) ==
PROVIDERS: Emergency Medicine; Student in an Organized Health Care Education/Training Program; PCP Family Medicine
DX: O23.41 Unspecified infection of urinary tract in pregnancy, first trimester (principal); N39.0 Urinary tract infection, site not specified; O21.9 Vomiting of pregnancy, unspecified; O99.281 Endocrine, nutritional and metabolic diseases complicating pregnancy, first trimester; E86.0 Dehydration; O99.611 Diseases of the digestive system complicating pregnancy, first trimester; K21.9 Gastro-esophageal reflux disease without esophagitis; O99.341 Other mental disorders complicating pregnancy, first trimester; F41.8 Other specified anxiety disorders; O99.331 Smoking (tobacco) complicating pregnancy, first trimester; F17.200 Nicotine dependence, unspecified, uncomplicated; Z3A.01 Less than 8 weeks gestation of pregnancy
CPT/HCPCS: 36415; 80053; 81001; 81025; 83690; 84702; 85025; 96361; 96365; 96375; 99284; J0696; J2765; J7042

== ENCOUNTER 2025-01-12 11:12 | Emergency (ER) | payer BC, SELFPAY ==
[2025-01-12 11:25] VITALS: BP 142/93; PULSE 65; RESP 18; TEMP 36.6; O2SAT 100
--- OUTSIDE RECORDS SUMMARY | 2025-01-12 11:39 | XMS_ITS | Clinical Summary ---
Author Organization [facility] [address] Address [address] [place] [address] Care Team Providers Care Landman Name Role Phone Noe Shelley MD Primary Care Provider [phone] MD Unavailable [phone] Source Comments [facility],non-owned Affiliates and Associated Physician Practices is amultiple site organization consisting of ambulatory clinics and hospital sitesin [place], [place], [place] and [place]. This disclosure is being madepursuant to the Care Everywhere program and may not contain all information available regarding this patient. 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 Gender Identity Not on file Sexual Orientation [...] SMEAR 2021 CHLAMYDIA/GONORRHEA SCREENING 08/16/2023, 01/02/2022, 09/16/2020 DEPRESSION SCREENING 05/07/2024 COVID-19 VACCINE (1 - 2023-2 5 season) 2025 INFLUENZA VACCINE (#1) 2025 ZOSTER VACCINE (1 [...] josy Non-reac tive 10/07/2020 5:21 PM CDT [facility] Comment:Hepatitis C Antibody screen indicates [...] ORDERABLES Fi nal Result Performing Organization Address [facility]/ZIP Co de Phone Number [address] [address], [place] [phone] * HIV-1 HIV-2 ANTIGEN/ANTIBODY (09/17/2020 10:53 AM CDT) HIV Antigen/Antibod y 1 & 2 Non-reacti ve Non-react josy 09/17/2020 12:23 PM CDT [facility] Comment:Neither HIV-1 p24 An tigen nor HIV-1/HIV-2 Antibodies are detected. Blood BLOOD SPECIMEN / Unknown Lab Venipuncture / Unknown 09/17/2020 10:53 AM CDT 09/17/2020 11:36 AM CDT us Bren Peguero MD LAB - HEMATOLOGY ORDERABLES Fin al Result Performing Organization Address [facility]/ZIP Co de Phone Number [address] [address], [place] [phone] from Last 3 Months or Most Recently Relevant to Health Maintenance Insurance [employer] [facility] SELF PAY NO INSURANCE Member Subscriber Plan / Payer (Ef fective for All Dates) Name:Sienna Stephen Member ID:Not on file Relation to Subscriber:Not on file Name:SIENNA STEPHEN Subscriber ID:Not on file (Home) Address: [address] [place] [id number] Payer ID:Not on file Group ID:Not on file Type:Self Pay Address: [place], [place] ANTHEM ANTHEM * Guarantor: SIENNA STEPHEN Account Type Relation to Patient Date of Phone Billing Address Personal/Family [phone]/[employer] [facility] SELF PAY NO INSURANCE Member Subscriber Plan / Payer (Ef fective for All Dates) Name:Sienna Stephen Member ID:Not on file Relation to Subscriber:Not on file Name:SIENNA STEPHEN Subscriber ID:Not on file Address: [address] [place] [address] Payer ID:Not on file Group ID:Not on file Type:Self Pay Address: [place], [place] * Guarantor: SIENNA STEPHEN Account Type Relation to Patient Date of Phone Billing Address Personal/Family [address] [place] [address]/[facility] [place] SELF PAY NO INSURANCE Member Subscriber Plan / Payer (Ef fective for All Dates) Name:Liborio Stephenlie Member ID:Not on file Relation to Subscriber:Not on file Name:LIBORIO STEPHENLIE Subscriber ID:Not on file Address: [address] [place] [address] Payer ID:Not on file Group ID:Not on file Type:Self Pay Address: [place], [place] * Guarantor: SIENNA STEPHEN Account Type Relation to Patient Date of Phone Billing Address Personal/Family [address] [place] [address]/[facility] [place] SELF PAY NO INSURANCE Member Subscriber Plan / Payer (Ef fective for All Dates) Name:Sienna Stephen Member ID:Not on file Relation to Subscriber:Not on file Name:SIENNA STEPHEN Subscriber ID:Not on file Address: [address] [place] [address] Payer ID:Not on file Group ID:Not on file Type:Self Pay Address: [place], [place] Care Teams Landman Relationship Specialty Start Date End Date Noe Shelley MD [address] [place] [address] PCP - General Family Medicine 09/10/[address] MD [phone] [address] Pediatrics 09/10/20
--- OUTSIDE RECORDS SUMMARY | 2025-01-12 11:40 | XMS_ITS | Clinical Summary ---
Author Organization [facility] Care Team Providers Care Saw Tailer Name Role Phone Unavailable Primary Care Provider [...]
--- OUTSIDE RECORDS SUMMARY | 2025-01-12 11:40 | XMS_ITS | Patient Health Record ---
Author Organization [facility] [employer] [facility] Address [address] [place] [address] Care Team Providers Care Offset Proof Press Operator Name Role Phone Destin Munoz Unavailable [phone] Reason For Referral No Information Medications Medication [...] ITCH REL 0.2% OPHTH UVALDO *Reorder from [employer] for eRx and Interaction Alerts* 02/03/2021 Active [...] Date Bcbs-M i Ppo-DN U [address] [place] [address] [id number] PACHECO WESLEY Child - Insured has Financial Responsibility
[2025-01-12 11:45] LABS: Hematocrit 42.6 % (37.0-47.0); Hemoglobin 14.9 g/dL (12.0-15.0); Immature Granulocyte Percent A 0.8 % (0-0.5); Lymphocytes Absolute Auto 2.42 K/mm3 (0.9-3.2); Mean Corpuscular HGB Conc 35.0 g/dl (32-36); Mean Corpuscular Hemoglobin 32.2 pg (26-34); Mean Corpuscular Volume 92.0 fl (80-100); Nucleated Red Blood Cells Absolute Auto 0.000 K/mm3 (0.0-0.012); Nucleated Red Blood Cells Perc 0.0 % (0.0-0.2); Platelet Count Result 369 k/mm3 (150-375); Red Blood Count 4.63 M/mm3 (4.2-5.4); White Blood Count 19.4 K/mm3 (4.5-10.0)
[2025-01-12 12:01] LABS: Alanine Aminotransferase 38 U/L (6-35); Albumin Level 4.9 g/dL (3.5-5.1); Alkaline Phosphatase 110 U/L (38-126); Anion Gap 10 mmol/L (4-12); Aspartate Amino Transferase 38 U/L (14-36); Bilirubin,Total 0.9 mg/dL (0.2-1.3); Blood Urea Nitrogen 12 mg/dL (7-17); Calcium 9.5 mg/dL (8.4-10.2); Carbon Dioxide 26 mmol/L (22-30); Chloride 101 mmol/L (98-107); Estimated CRCL calculation 101 ml/min; Estimated Glomerular Filt Rate > 60; Glucose 105 mg/dL (65-110); Lipase 56 U/L (23-300); Potassium 3.6 mmol/L (3.4-5.0); Sodium 137 mmol/L (137-145); Total Protein 8.3 g/dL (6.3-8.2)
--- NOTE | 2025-01-12 12:03 | ED_ITS ---
HPI - General Adult General Chief complaint: Nausea/Vomiting/Diarrhea Stated complaint: n/v, 4 weeks preg Time Seen by Provider: 01/12/25 11:35 History of Present Illness HPI narrative: 24-year-old female presents to the emergency department for evaluation for persistent nausea and vomiting. Patient is approximately 4 weeks . this is her 1st . Patient also does admit to daily THC use. Patient denies any lower abdominal pain denies any vaginal bleeding vaginal discharge. Patient does complain of heartburn and epigastric burning. Related Data Home Medications ?Medication ?Instructions ?Recorded ?Confirmed ?Last Taken ?Type aripiprazole 5 mg tablet 5 mg PO DAILY 05/25/2309/1009/09/24 History Allergies Allergy/AdvReac Type Severity Reaction Status Date / Time No Known Allergies Allergy Verified 01/12/25 11:13 Review of Systems 2 Review of Systems: All systems reviewed & are unremarkable except as noted in HPI and below PMFSH Past Medical History Medical History Pain in the coccyx GERD (gastroesophageal reflux disease) Nausea and vomiting Edema of right foot Acute non-recurrent maxillary sinusitis Depression with anxiety Dietary counseling and surveillance (12/31/17) Family hx of ALS (amyotrophic lateral sclerosis) Pain in thoracic spine Routine physical examination Thoracolumbar back pain Viral upper respiratory infection Family History Family History Father Diabetes mellitus Mother ALS (amyotrophic lateral sclerosis) Sibling No problems noted. Social History Social History Smoking status: Current every day smoker Second hand tobacco smoke exposure: Yes Alcohol intake: current Substance use: current Substance use type: marijuana Other substance usage details: several times a day Do You Feel Safe in your Home?: Yes Lack of Transportation: No Lack of Food: Never True Current Housing: I Have Housing Concerned About Future Housing: No Difficulty Paying Gas/Electric Bills: No Difficulty Paying for Meds: No Currently Unemployed: No Difficulty w/ Childcare or Family Care: No Living arrangements: with family Occupation/Education: occupation Additional occupation/education comments: [employer] Gender identity (if verbalized by the patient): Female Spiritual care concerns: No Exam 2 Narrative: APPEARANCE: Uncomfortable appearing HEAD: normocephalic, atraumatic. EYES: PERRLA/EOMI, conjunctivae clear. NOSE: Normal no drainage EARS:TMS clear with good light reflex. THROAT: Pharynx clear, no exudate. NECK: Supple. No adenopathy, no masses. RESPIRATORY: Airway patent, respirations nonlabored. Clear to auscultation bilaterally, no rales, rhonchi, wheezing. CARDIOVASCULAR: Regular rate and rhythm without murmurs rubs or gallops. ABDOMINAL: Soft, nontender, nondistended, normal bowel sounds MUSCULOSKELETAL: Moves all extremities. Strength/ROM intact, No edema, No calf tenderness. NEURO: Alert. Cranial nerves II through XII intact. Good gait. Good coordination SKIN: Warm, dry. Normal Color Course Vital Signs Vital signs: Vital Signs Temperature 97.9 F 01/12/25 11:25 Pulse Rate 65 01/12/25 11:25 Respiratory Rate 18 01/12/25 11:25 Blood Pressure 142/93 H 01/12/25 11:25 Pulse Oximetry 100 01/12/25 11:25 Oxygen Delivery Room Air 01/12/25 11:25 Temperature 97.9 F 01/12/25 11:25 Pulse Rate 65 01/12/25 11:25 Respiratory Rate 18 01/12/25 11:25 Blood Pressure 142/93 H 01/12/25 11:25 Pulse Oximetry 100 01/12/25 11:25 Oxygen Delivery Room Air 01/12/25 11:25 Medical Decision Making [facility] Narrative Medical decision making narrative: 24-year-old female presents to the emergency department for evaluation for persistent nausea and vomiting associated with a 4 week and daily THC use. Patient is afebrile but does have a leukocytosis of 19.4 hemoglobin of 14.9. No acute abnormalities on her CMP and UA was negative for infection. On re-evaluation after IV fluids and anti emetics patient does feel significantly improved. Patient will be discharged home with Zofran and Reglan. Some of patient's symptoms may be secondary to hyperemesis gravidarum or to cannabinoid hyperemesis. Patient was educated on both. Patient was provided medications for nausea control encouraged of close follow-up with OB Gyne. Patient was also encouraged to refrain from any THC use. Patient's quant was 4818 Differential Diagnosis Differential Diagnosis: Cannabinoid hyperemesis syndrome, hyperemesis gravidarum, urinary tract infection Vital Signs Vital Signs: Vital Signs Temperature 97.9 F 01/12/25 11:25 Pulse Rate 65 01/12/25 11:25 Respiratory Rate 18 01/12/25 11:25 Blood Pressure 142/93 H 01/12/25 11:25 Pulse Oximetry 100 01/12/25 11:25 Oxygen Delivery Room Air 01/12/25 11:25 Temperature 97.9 F 01/12/25 11:25 Pulse Rate 65 01/12/25 11:25 Respiratory Rate 18 01/12/25 11:25 Blood Pressure 142/93 H 01/12/25 11:25 Pulse Oximetry 100 01/12/25 11:25 Oxygen Delivery Room Air 01/12/25 11:25 Lab Data Lab results reviewed: Yes I reviewed the patient's lab results. 01/12/25 11:33 01/12/25 11:33 Labs: Lab Results 01/12/25 Range/Units 11:33 WBC 19.4 H (4.5-10.0) K/mm3 RBC 4.63 (4.2-5.4) M/mm3 Hgb 14.9 (12.0-15.0) g/dL Hct 42.6 (37.0-47.0) % MCV 92.0 (80-100) fl MCH 32.2 (26-34) pg MCHC 35.0 (32-36) g/dl RDW 12.3 (11.5-14.5) % Plt Count 369 (150-375) k/mm3 MPV 9.4 (7.4-10.4) fl Immature Gran % (Auto) 0.8 H (0-0.5) % Neut % (Auto) 82.0 H (45.5-73.1) % Lymph % (Auto) 12.5 L (18.3-44.2) % [place] % (Auto) 4.4 (2.6-8.5) % Eos % (Auto) 0.0 (0-4.4) % Baso % (Auto) 0.3 (0.2-1.2) % Lymph # (Auto) 2.42 (0.9-3.2) K/mm3 [place] # (Auto) 0.9 H (0.1-0.6) K/mm3 Eos # (Auto) 0.0 (0-0.3) K/mm3 Baso # (Auto) 0.1 (0.0-0.1) K/mm3 Abs Immat Gran (auto) 0.16 H (0.00-0.031) K/mm3 Absolute Neuts (auto) 15.9 H (1.3-6.7) K/mm3 Absolute Nucleated RBC 0.000 (0.0-0.012) K/mm3 Nucleated RBC % 0.0 (0.0-0.2) % Sodium 137 (137-145) mmol/L Potassium 3.6 (3.4-5.0) mmol/L Chloride 101 (98-107) mmol/L Carbon Dioxide 26 (22-30) mmol/L Anion Gap 10 (4-12) mmol/L BUN 12 (7-17) mg/dL Creatinine 0.69 L (0.7-1.0) mg/dL Estim Creat Clear Calc 101 ml/min Estimated GFR > 60 (59 - ) Glucose 105 (65-110) mg/dL Calcium 9.5 (8.4-10.2) mg/dL Total Bilirubin 0.9 (0.2-1.3) mg/dL AST 38 H (14-36) U/L ALT 38 H (6-35) U/L Alkaline Phosphatase 110 (38-126) U/L Total Protein 8.3 H (6.3-8.2) g/dL Albumin 4.9 (3.5-5.1) g/dL Lipase 56 (23-300) U/L Beta HCG, Quant 4818.00 mIU/ML Urine Color Dark yellow (Yellow) Urine Appearance Cloudy H (Clear) Urine pH 8.5 (5.0-9.0) Ur Specific [place] 1.023 (1.001-1.035) Urine Protein 1+ H (Negative) mg/dL Urine Glucose (UA) Negative (Negative) mg/dL Urine Ketones 2+ H (Negative) mg/dL Ur Blood (Man) Negative (Negative) Urine Nitrate Negative (Negative) Urine Bilirubin Negative (Negative) Urine Urobilinogen 0.2 (<2.0) mg/dL Add Ur Microanalysis Reviewed Leukocyte Esterase Rfl Trace H (Negative) OLEG/UL Urine RBC 0-2 (0-2) /hpf Urine WBC 0-5 (0-3) /hpf Ur Squamous Epith Cells Many H (Few) /hpf Urine Bacteria None seen /hpf Urine Casts 0-2 Discharge Plan Discharge Clinical Impression: Hyperemesis gravidarum Patient Disposition: Home Condition: Stable Instructions: Antibiotic Form, Nausea and Vomiting in (ED), Clear Liquid Diet (ED) Additional Instructions: Zofran as needed for nausea control Reglan as needed for additional nausea control. Clear liquid diet as needed advance to bland diet as tolerated. Continue to have close follow-up with OB Gyne. Patient Language: Serbian Prescriptions: New ondansetron 4 mg tablet,disintegrating 4 mg PO Q8H PRN (Reason: nausea and vomiting) Qty: 14 0RF metoclopramide HCl [Reglan] 10 mg tablet 10 mg PO Q6H PRN (Reason: nausea and vomiting) Qty: 14 0RF No Action aripiprazole 5 mg tablet 5 mg PO DAILY metoclopramide HCl [Reglan] 10 mg tablet 10 mg PO Q6H PRN (Reason: nausea and vomiting) Qty: 30 0RF cephalexin 500 mg capsule 500 mg PO Q8H 5 Days Qty: 15 0RF Follow-up/Referrals: Noe Shelley MD [Primary Care Provider, [facility]]
[2025-01-12 12:05] LABS: Add Urine Microscopic? YES; Appearance Urine Cloudy (Clear); Glucose Urine UA Negative (Negative); Leukocyte Esterase Ur Trace LEU/UL (Negative); Need Manual Microscopic Reviewed; Nitrate Urine Negative (Negative); Non Pathogenic Casts 0-2; Specific Grav Ur 1.023 (1.001-1.035)
[2025-01-12] MEDS: LACTATED RINGERS 1,000 ML 999 ML IV CONT (12:09)
[2025-01-12] MEDS: BELLADONNA ALK/PHENOB ELIX 10 ML, MAG HYDROX/ALUMINUM HYD/SIMETH 30 ML, LIDOCAINE 2% VI... PO (12:10)
[2025-01-12] MEDS: PANTOPRAZOLE SODIUM IV 40 MG VIAL IV PUSH (12:10)
[2025-01-12] MEDS: METOCLOPRAMIDE HCL INJ 10 MG/2 ML VIAL IV PUSH (12:10)
[2025-01-12 14:21] LABS: Beta HCG Quantitative 4818.00 mIU/ML
== END 2025-01-12 14:06 | disposition home or self-care (01) ==
PROVIDERS: Emergency Provider Emergency Medicine; PCP Family Medicine
DX: O21.0 Mild hyperemesis gravidarum (principal); Z3A.01 Less than 8 weeks gestation of pregnancy
CPT/HCPCS: 36415; 80053; 81001; 83690; 84702; 85025; 96361; 96374; 96375; 99284; A9270; J2470; J2765; J7120

== ENCOUNTER 2025-02-22 17:11 | Emergency (ER) | payer BC, SELFPAY ==
[2025-02-22 17:33] VITALS: BP 133/86; PULSE 77; RESP 16; TEMP 36.4; O2SAT 100
[2025-02-22 18:16] VITALS: BP 126/96; O2SAT 100
[2025-02-22 18:36] VITALS: PULSE 69; RESP 16; O2SAT 100
[2025-02-22 18:47] LABS: BEDSIDEPREGUCG Positive (Negative)
[2025-02-22 18:56] LABS: Hematocrit 41.2 % (37.0-47.0); Hemoglobin 14.3 g/dL (12.0-15.0); Immature Granulocyte Percent A 0.7 % (0-0.5); Lymphocytes Absolute Auto 1.50 K/mm3 (0.9-3.2); Mean Corpuscular HGB Conc 34.7 g/dl (32-36); Mean Corpuscular Hemoglobin 31.9 pg (26-34); Mean Corpuscular Volume 92.0 fl (80-100); Nucleated Red Blood Cells Absolute Auto 0.000 K/mm3 (0.0-0.012); Nucleated Red Blood Cells Perc 0.0 % (0.0-0.2); Platelet Count Result 366 k/mm3 (150-375); Red Blood Count 4.48 M/mm3 (4.2-5.4); White Blood Count 21.1 K/mm3 (4.5-10.0)
[2025-02-22 19:02] LABS: Alanine Aminotransferase 72 U/L (6-35); Albumin Level 5.2 g/dL (3.5-5.1); Alkaline Phosphatase 85 U/L (38-126); Anion Gap 18 mmol/L (4-12); Aspartate Amino Transferase 57 U/L (14-36); Bilirubin,Total 0.8 mg/dL (0.2-1.3); Blood Urea Nitrogen 16 mg/dL (7-17); Calcium 9.8 mg/dL (8.4-10.2); Carbon Dioxide 21 mmol/L (22-30); Chloride 100 mmol/L (98-107); Estimated CRCL calculation 114 ml/min; Estimated Glomerular Filt Rate > 60; Glucose 120 mg/dL (65-110); Lipase 61 U/L (23-300); Potassium 3.8 mmol/L (3.4-5.0); Sodium 139 mmol/L (137-145); Total Protein 8.9 g/dL (6.3-8.2)
[2025-02-22 19:13] LABS: Add Urine Microscopic? YES; Appearance Urine Cloudy (Clear); Glucose Urine UA Negative (Negative); Leukocyte Esterase Ur 2+ LEU/UL (Negative); Need Manual Microscopic Reviewed; Nitrate Urine Negative (Negative); Non Pathogenic Casts 0-2; Specific Grav Ur 1.034 (1.001-1.035)
--- NOTE | 2025-02-22 19:17 | ED.NAVMDI ---
HPI - Nausea/Vomiting/Diarrhea General Chief complaint: Nausea/Vomiting/Diarrhea Stated complaint: n/v Time Seen by Provider: 02/22/25 19:01 History of Present Illness HPI Narrative: A 24-year-old female approximate 11 weeks in her 1st . Patient presents to the emergency department today with heartburn as well as nauseousness for last 4 days. She states she vomits up after eating for last 4 days. Has tried Pepcid home. Has Zofran but has not taken anything at home. Her OBGYN is Dr. Anguiano. Has not contacted her OBGYN regarding her symptoms. No other complaints at this time. Endorses feeling relief with Maalox and viscous lidocaine but has not had anything at home. No bleeding or discharge. No abdominal pain. Related Data Home Medications ?Medication ?Instructions ?Recorded ?Confirmed ?Last Taken ?Type aripiprazole 5 mg tablet 5 mg PO DAILY 05/25/23 09/10/24 09/09/24 History Allergies Allergy/AdvReac Type Severity Reaction Status Date / Time No Known Allergies Allergy Verified 02/22/25 17:13 Review of Systems Review of Systems: As [facility] Past Medical History Medical History Pain in the coccyx GERD (gastroesophageal reflux disease) Nausea and vomiting Edema of right foot Acute non-recurrent maxillary sinusitis Depression with anxiety Dietary counseling and surveillance (12/31/17) Family hx of ALS (amyotrophic lateral sclerosis) Pain in thoracic spine Routine physical examination Thoracolumbar back pain Viral upper respiratory infection Family History Family History Father Diabetes mellitus Mother ALS (amyotrophic lateral sclerosis) Sibling No problems noted. Social History Social History Smoking status: Current every day smoker Second hand tobacco smoke exposure: Yes Alcohol intake: current Substance use: current Substance use type: marijuana Other substance usage details: several times a day Do You Feel Safe in your Home?: Yes Lack of Transportation: No Lack of Food: Never True Current Housing: I Have Housing Concerned About Future Housing: No Difficulty Paying Gas/Electric Bills: No Difficulty Paying for Meds: No Currently Unemployed: No Difficulty w/ Childcare or Family Care: No Living arrangements: with family Occupation/Education: occupation Additional occupation/education comments: [employer] Gender identity (if verbalized by the patient): Female Spiritual care concerns: No Exam Narrative: GENERAL: [Well-appearing, well-nourished, and in no acute distress.] HEAD: [Normocephalic, atraumatic.] EYES: [PERRLA and EOMI.] ENT: Nares clear, no rhinorrhea or epistaxis. Mucous membranes moist. NECK: Supple. CHEST: [Clear to auscultation. No respiratory distress.] HEART: [Regular rate and rhythm]. No murmur heard. [Normal peripheral pulses.] ABDOMEN: [Soft, nondistended], [nontender], [No rigidity or guarding] EXTREMITIES: Normal range of motion. [No edema.] SKIN: Warm, dry, no rash. NEURO: [No focal deficits]. Alert and oriented [x3.] PSYCH: [Normal mood and affect.] Course Vital Signs Vital signs: Vital Signs Temperature 36.4 C 02/22/25 17:33 Pulse Rate 77 02/22/25 17:33 Respiratory Rate 16 02/22/25 17:33 Blood Pressure 133/86 02/22/25 17:33 Pulse Oximetry 100 02/22/25 17:33 Temperature 36.4 C 02/22/25 17:33 Pulse Rate 64 02/22/25 22:54 Respiratory Rate 16 02/22/25 22:54 Blood Pressure 107/78 02/22/25 22:54 Pulse Oximetry 100 02/22/25 22:54 MDM - Nausea/Vomiting/Diarrhea MDM Narrative Medical decision making narrative: A 24-year-old female approximate 11 weeks in her 1st . Patient presents to the emergency department today with heartburn as well as nauseousness for last 4 days. She states she vomits up after eating for last 4 days. Has tried Pepcid home. Has Zofran but has not taken anything at home. Her OBGYN is Dr. Anguiano. Has not contacted her OBGYN regarding her symptoms. No other complaints at this time. Endorses feeling relief with Maalox and viscous lidocaine but has not had anything at home. No bleeding or discharge. No abdominal pain. Patient has normal vital signs here without any fever, tachycardia, tachypnea, hypoxemia or blood pressure concerns. Nondistended soft abdomen. Not any acute distress and conversant full sentences. Does not appear dehydrated but states that she feels thirsty. IV was established and basic laboratory studies were assessed. Will evaluate for dehydration, electrolyte abnormalities, less likely infectious pathology. Given patient's history of GERD responsive to viscous lidocaine and Maalox she was given a dose of this p.o. after given her Reglan diphenhydramine for nausea control. Given dextrose containing fluids for rehydration for starvation ketosis likely and additional fluid boluses and placed on monitor for re-evaluation. Pepcid given. Improved on reassessment. Tolerating oral intake. Does have a minor leukocytosis that appears chronic based on her previous labs frequently. Normal hemoglobin. Normal platelet count. Urine does have signs of infection so we will treat this with Keflex. Normal electrolytes and kidney function. Patient sent home with prescription medications and following up with her OBGYN outpatient. Medical Records Attestation: I reviewed the patient's medical records. Lab Data Attestation: I reviewed the patient's lab results. 02/22/25 18:43 02/22/25 18:43 Labs: Lab Results 02/22/25 02/22/25 Range/Units 18:43 18:45 WBC 21.1 H (4.5-10.0) K/mm3 RBC 4.48 (4.2-5.4) M/mm3 Hgb 14.3 (12.0-15.0) g/dL Hct 41.2 (37.0-47.0) % MCV 92.0 (80-100) fl MCH 31.9 (26-34) pg MCHC 34.7 (32-36) g/dl RDW 11.8 (11.5-14.5) % Plt Count 366 (150-375) k/mm3 MPV 9.5 (7.4-10.4) fl Immature Gran % (Auto) 0.7 H (0-0.5) % Neut % (Auto) 90.6 H (45.5-73.1) % Lymph % (Auto) 7.1 L (18.3-44.2) % [place] % (Auto) 1.4 L (2.6-8.5) % Eos % (Auto) 0.0 (0-4.4) % Baso % (Auto) 0.2 (0.2-1.2) % Lymph # (Auto) 1.50 (0.9-3.2) K/mm3 [place] # (Auto) 0.3 (0.1-0.6) K/mm3 Eos # (Auto) 0.0 (0-0.3) K/mm3 Baso # (Auto) 0.0 (0.0-0.1) K/mm3 Abs Immat Gran (auto) 0.15 H (0.00-0.031) K/mm3 Absolute Neuts (auto) 19.1 H (1.3-6.7) K/mm3 Absolute Nucleated RBC 0.000 (0.0-0.012) K/mm3 Nucleated RBC % 0.0 (0.0-0.2) % Sodium 139 (137-145) mmol/L Potassium 3.8 (3.4-5.0) mmol/L Chloride 100 (98-107) mmol/L Carbon Dioxide 21 L (22-30) mmol/L Anion Gap 18 H (4-12) mmol/L BUN 16 (7-17) mg/dL Creatinine 0.63 L (0.7-1.0) mg/dL Estim Creat Clear Calc 114 ml/min Estimated GFR > 60 (59 - ) Glucose 120 H (65-110) mg/dL Calcium 9.8 (8.4-10.2) mg/dL Total Bilirubin 0.8 (0.2-1.3) mg/dL AST 57 H (14-36) U/L ALT 72 H (6-35) U/L Alkaline Phosphatase 85 (38-126) U/L Total Protein 8.9 H (6.3-8.2) g/dL Albumin 5.2 H (3.5-5.1) g/dL Lipase 61 (23-300) U/L Urine Color Dark yellow (Yellow) Urine Appearance Cloudy H (Clear) Urine pH 5.5 (5.0-9.0) Ur Specific [place] 1.034 (1.001-1.035) Urine Protein 1+ H (Negative) mg/dL Urine Glucose (UA) Negative (Negative) mg/dL Urine Ketones 4+ H (Negative) mg/dL Ur Blood (Man) Negative (Negative) Urine Nitrate Negative (Negative) Urine Bilirubin Negative (Negative) Urine Urobilinogen 1.0 (<2.0) mg/dL Add Ur Microanalysis Reviewed Leukocyte Esterase Rfl 2+ H (Negative) OLEG/UL Urine RBC 3-5 H (0-2) /hpf Urine WBC 21-50 H (0-3) /hpf Ur Squamous Epith Cells Moderate (Few) /hpf Urine Bacteria 2+ H /hpf Urine Casts 0-2 POC Urine HCG, Qual Positive (Negative) Discharge Plan Discharge Clinical Impression: Nausea and vomiting during , UTI (urinary tract infection), Leukocytosis, Heart burn Patient Disposition: Home Condition: Stable Instructions: Antibiotic Form Additional Instructions: You do have a urinary infection here with bacteria and elevated white count. This could also contribute to some your nausea vomiting but also with the ongoing and GERD like symptoms will treat this with a combination of symptom controlling medications including Zofran for nausea, Pepcid and Maalox for GERD as well as antibiotics to be taken for the next 7 days. Follow-up with your OBGYN next several days. Return with any worsening or new symptoms. Patient Language: Moroccan Prescriptions: New alum-mag hydroxide-simeth [Maalox Advanced] 200-200-20 mg/5 mL suspension 15 ml PO QID PRN (Reason: indigestion) Qty: 3000 0RF Rx Instructions: administer between meals and at bedtime famotidine [Pepcid] 20 mg tablet 20 mg PO BID Qty: 20 0RF ondansetron 4 mg tablet,disintegrating 4 mg PO Q8H PRN (Reason: nausea and vomiting) Qty: 20 0RF cephalexin 500 mg capsule 500 mg PO Q6H 7 Days Qty: 28 0RF No Action aripiprazole 5 mg tablet 5 mg PO DAILY metoclopramide HCl [Reglan] 10 mg tablet 10 mg PO Q6H PRN (Reason: nausea and vomiting) Qty: 30 0RF cephalexin 500 mg capsule 500 mg PO Q8H 5 Days Qty: 15 0RF ondansetron 4 mg tablet,disintegrating 4 mg PO Q8H PRN (Reason: nausea and vomiting) Qty: 14 0RF metoclopramide HCl [Reglan] 10 mg tablet 10 mg PO Q6H PRN (Reason: nausea and vomiting) Qty: 14 0RF Follow-up/Referrals: Noe Shelley MD [Primary Care Provider, [facility]] Time of Disposition: 22:29
[2025-02-22] MEDS: BELLADONNA ALK/PHENOB ELIX 10 ML, MAG HYDROX/ALUMINUM HYD/SIMETH 30 ML, LIDOCAINE 2% VI... PO (19:26)
[2025-02-22] MEDS: METOCLOPRAMIDE HCL 10 MG TABLET PO (19:29)
[2025-02-22] MEDS: LACTATED RINGERS 1,000 ML 999 ML IV CONT (19:29)
[2025-02-22] MEDS: FAMOTIDINE 20 MG/2 ML VIAL IV PUSH (19:32)
[2025-02-22] MEDS: DEXTROSE 5%/LACTATED RINGERS 1,000 ML 1000 ML IV CONT (19:36)
[2025-02-22 19:41] VITALS: BP 117/87; PULSE 74; RESP 16; O2SAT 100
--- OUTSIDE RECORDS SUMMARY | 2025-02-22 20:43 | XMS_ITS | Data Portability ---
Author Organization [facility] Address [address] [place] [address] [place] [address] Care Team Providers Care Frame Changer Name Role Phone ERON ZHAO Primary Care Provider Assessment Encounter Date Assessment Date Assessment LastModified by Organization Details LastModified Time 02/09/2025 02/09/2025 Patient is ___weeks . Discussed plan. [email or web address] Not available 02/09/2025 15:20:15 Plan of Treatment Reminders Order Date Submit Date Provider Last Modified By Organization Details Last Modified Time Details Appointments U/S OB FIRST LOOK 2024 02:30P M ULTRASOUND Not available Not available Not available OB NEW 2024 03:00P M Rodo ANGUIANO MD Not available Not available Not available Lab pregnan cy test, urine 2024 025 [email or web address] [facility], [address], [place], [address], 01/08/2025 15:26:24 Referral None recorde d. Procedures None recorde d. Surgeries None recorde d. Imaging US, obstetr ic, transva ginal 2024 025 [email or web address] [facility], [address], [place], [address], 01/29/2025 18:25:28 US, obstetr ic, transva ginal 2024 025 [email or web address] [facility], [address], [place], [address], 01/08/2025 15:11:46 Medication Orders prometh azine 25 mg tablet 2024 025 [id number], [address], [place], [place], [id number], 01/14/2025 16:01:28 Patient TargetsNo targets recorded. Patient InstructionsNo instructions recorded. Reason for Referral None Reported. Results Created Date Observation Date Name Description Value Unit Range Abnormal Flag Note LastModifiedBy Organization Detail LastModifiedTime 01/09/2001/08/[address] test, urine HCG positi ve Not Available [facility] [address], [place], [address], 01/08/2025 15:25:44 01/09/2001/08/2025 US, obste tric, trans vagin al No observ ation record ed. [email or web address] [facility] [address], [place], [address], 01/08/2025 12:56:51 01/09/2001/08/2025 US, obste tric, follo w-up No observ ation record ed. [email or web address] [address], [place], [address], 01/13/2025 12:18:15 01/29/2001/28/2025 US, obste tric, trans vagin al No observ ation record ed. [email or web address] [facility] [address], [place], [address], 01/28/2025 18:35:28 01/29/2001/28/2025 US, obste tric, trans vagin al No observ ation record ed. [email or web address] [address], [place], [address], 01/28/2025 13:46:25 02/10/20 25 02/09/2025 US, obste tric, 1st trime ster No observ ation record ed. [email or web address] [address], [place], [address], 02/10/2025 11:24:05 Result Notes None recorded. Problems Name Problem SNOMED Code Status Onset Date Resolution Date Notes Provider Name and Address Organization Details Recorded Time SNOMED CT Concept Completed 201509/15/2020 Encntr for routine child health exam w/o abnormal findings; Recorded Elsewhere : No Locati on: [facility] So urce: EHR Chron ic: N Practic e ID: 0001 Bill able Time: 03:15:00 PM Jessiac [facility] 21:39:37 Syphilis test finding [id number] Completed 201509/28/2021 Encounter for STD screening ;Recorded Elsewhere : No Locati on: [facility] So urce: EHR Chron ic: N Practic e ID: 0001 Bill able Time: 04:00:00 PM Jessica [facility] 2 17:48:57 Infectio n screenin g Completed 201509/15/2020 Encounter for screening for oth infec/par astc diseases; Recorded Elsewhere : No Locati on: [facility] So urce: EHR Chron ic: N Practic e ID: 0001 Bill able Time: 04:00:00 PM Jessica [facility] 21:39:34 Emotiona l state finding Completed 201809/28/2021 Anxiety depressio n;Recorde d Elsewhere : No Locati on: [facility] So urce: EHR Chron ic: N Practic e ID: 0001 Bill able Time: 02:30:00 PM Jessica [facility] 2 17:48:[address] Concept Completed 201809/15/2020 Well woman check w/o abnormal finding;R ecorded Elsewhere : No Locati on: [facility] So urce: EHR Chron ic: N Practic e ID: 0001 Bill able Time: 02:30:00 PM Jessica Quick [facility] 1 21:39:41 Acute vaginiti s 81513011 Completed 201809/28/2021 Acute vulvovagi nitis;Rec orded Elsewhere : No Locati on: [facility] So urce: EHR Chron ic: N Practic e ID: 0001 Bill able Time: 02:30:00 PM [facility] 2 17:48:57 Finding of sensatio n of breast Completed 201909/28/2021 Mastodyni a;Recorde d Elsewhere : No Locati on: [facility] So urce: EHR Chron ic: N Practic e ID: 0001 Bill able Time: 01:00:00 PM Jessica [facility] 2 17:48:57 Problem Notes None recorded. Procedures Surgical History Date Name Laterality Status Provider Name and Address Organization Details Recorded Time 5 Date of Last Pap Smear completed Lucretia Mack [facility] 12/03/2024 10:37:05 9 Date of Last Mammogram completed [facility] 09/15/2020 21:41:22 Imaging Results None recorded. Procedure Notes None recorded. Medical Equipment None Reported. Allergies No known drug allergies Medications Name Sig Start Date Stop Date Status Note LastModified by Organization Details LastModified Time prednison e 10 mg tablet TAKE 3 TABLETS BY MOUTH DAILY IN THE MORNING FOR 5 DAYS 10/29 completed Not Available Not Available Not Available doxycycli ne hyclate 100 mg capsule 05/23 completed Not Available Not Available Not Available fluconazo le 200 mg tablet Take 1 tablet on days 1, 4, & 7 x 3 doses. 01/02 completed Not Available Not Available Not Available spironola ctone 100 mg tablet 08/15 completed Not Available Not Available Not Available Anucort-H C 25 mg supposito ry UNWRAP AND INSERT 1 SUPPOSIT ORY RECTALLY TWICE DAILY 10/29 completed Not Available Not Available Not Available metronida zole 500 mg tablet TAKE 1 TABLET BY MOUTH EVERY 12 HOURS FOR 7 DAYS 08/15 completed Not Available Not Available Not Available sulfameth oxazole 800 mg-trimet hoprim 160 mg tablet TAKE 1 TABLET BY MOUTH EVERY 12 HOURS WITH MEALS FOR 5 DAYS 10/29 completed Not Available Not Available Not Available omeprazol e 40 mg capsule,d elayed release TAKE 1 CAPSULE BY MOUTH DAILY 10/29 completed Not Available Not Available Not Available spironola ctone 25 mg tablet take 1 tablet by oral route every day 09/29 completed Prescrib ed Elsewher e: Yes Loca tion: [facility]ify By: cam melgaruntwilian DateTime : 09/17/19 19 02:30:00 PM Not Available Not Available [...] Prescrib ed Elsewher e: No Locat ion: [facility] By: cam Adan ncounter DateTime : 07/25/19 19 02:25:10 PM Not Available Not Available Not [...] completed Not Available Not Available Not Available cephalexi n 500 mg capsule TAKE 1 CAPSULE BY MOUTH EVERY 8 HOURS FOR 5 DAYS 02/09 completed Not Available Not Available Not Available mirtazapi ne 30 mg tablet TAKE 1 TABLET BY MOUTH EVERY DAY AT BEDTIME 08/23 completed Not Available Not Available Not Available promethaz ine 25 mg tablet Take 1 tablet every 4 hours by oral route. 2024 active Not Available Not Available Not Avai lable pyridoxin e (vitamin B6) 50 mg tablet TAKE 1 TABLET BY MOUTH ONCE DAILY 09/29 completed Not Available Not Available Not Available omeprazol e 20 mg capsule,d elayed release TAKE 1 CAPSULE BY MOUTH DAILY 10/29 completed Not Available Not Available Not Available gabapenti n 100 mg capsule TAKE 1 CAPSULE BY MOUTH AT BEDTIME 09/29 completed Not Available Not Available Not Available ondansetr on 4 mg disintegr ating tablet DISSOLVE 1 TABLET ON THE TONGUE EVERY 8 HOURS NEEDED FOR NAUSEA OR VOMITING 02/09 completed Not Available Not Available Not Available pyrazinam ian 500 mg tablet TAKE 3 TABLETS BY MOUTH EVERY DAY FOR 56 DAYS 09/29 completed Not Available Not Available Not Available sertralin e 50 mg tablet TAKE 1 TABLET BY MOUTH EVERY DAY 10/29 completed Not Available Not Available Not Available metoclopr amide 10 mg tablet TAKE 1 TABLET BY MOUTH EVERY 6 HOURS NEEDED FOR NAUSEA OR VOMITING 02/09 completed Not Available Not Available Not Available Zithromax 500 mg tablet take 2 tablet by oral route once 07/22 completed Prescrib amos Medellin e: No Locat ion: [facility] odify By: etienne choudhary DateTime : 04/14/20 01:51:26 PM Not Available Not Available Not Available escitalop mary 10 mg tablet TAKE 1 TABLET BY MOUTH EVERY DAY 09/29 completed Not Available Not Available Not Available cyclobenz aprine 5 mg tablet TAKE 1 TABLET BY MOUTH THREE TIMES DAILY FOR 7 DAYS 10/29 completed Not Available Not Available Not Available aripipraz ole 5 mg tablet TAKE 1 TABLET BY MOUTH EVERY NIGHT AT BEDTIME 02/09 completed Not Available Not Available Not Available Wellbutri n XL 150 mg 24 hr tablet, extended release take 2 Tablet by oral route every day 04/24 completed Prescrib ed Elsewher e: No Locat ion: [facility] odify By: etienne Adan ncounter DateTime : 08/27/19 02:30:00 PM Not Available Not Available Not Available Wellbutri n XL 300 mg 24 hr tablet, extended release take 1 tablet by oral route every day 08/26 completed Prescrib ed Elsewher e: No Locat ion: [facility] odify By: indy tz Encou nter DateTime : 07/23/19 02:00:00 PM Not Available Not Available Not Available active Not Available Not Avai lable Not Available clindamyc in 1.2 % (1 [...] meals for 1 day. 05/23 completed Lot#: [id number], exp 01/2024 Not Available Not Available Not Available Sara-Lana imine (28) 3 mg-0.02 mg tablet TAKE 1 TABLET BY MOUTH DAILY 10/29 completed Not Available Not Available Not Available Vitals Date Recorded Body height Body mass index (BMI) Body weight Systolic And Diastolic Provider Name and Address Organization Details Last Updated DateTime 01/14/2025 168.28 cm 25.3 kg/m2 34444.59 g 114/78 mm[Hg] Yaquelin Villaseñor [place] [facility] 01/14/2025 15:55:48 Date Recorded Body height Body mass index (BMI) Body weight Systolic And Diastolic Provider Name and Address Organization Details Last Updated DateTime 02/09/2025 168.28 cm 25.8 kg/m2 82318.37 g 113/73 mm[Hg] Yaquelin Villaseñor [facility] 02/09/2025 15:21:31 Social History Question Answer Notes LastModified by Organizat ion Details LastModified Time Tobacco Smoking Status Never Smoker Jessica Hutchinson jagruti, [facility] 05/23/2022 16:21:58 Do You Have An Advance Directive? No Information n ot available 05/23/2022 How Many Years Have You [...] Or The Highest Degree You Have Received? [id number] Information not available 05/23/2022 Are There Any [...] Information not available 05/23/2022 Do You Use Sunscreen Routinely? No Information not available 05/23/2022 Have You Used IV Drugs? No Information not available 05/23/2022 Do You Have Difficulty Walking Or Climbing Stairs? No Information not available 05/23/2022 Sex: Unknown Functional Status Question Answer Note LastModified by Organizat ion Details LastModified Time Do you use any illicit or recreational drugs? No Information not available 09/15/2020 What is your level of alcohol consumption? Occasional Information not available 05/23/2022 Are you able to walk independently without assistance or assistive devices? YESWOREST Information not available 09/15/2020 Are you able to care for yourself independently? Yes Information not available 05/23/2022 Do you have difficulty dressing, bathing, grooming, or toileting? No Information not available 05/23/2022 What is your exercise level? Occasional Information not available 09/15/2020 Mental Status Question Answer Note LastModified by Organization D etails LastModified Time Do you feel stressed (tense, restless, nervous, or anxious, or unable to sleep at night)? [id number] Information not available 09/15/2020 Family History Relationship Description Onset Age of this Age Resolved Age Notes LastModified by Organization Details LastModified Time Mother Amyotrophic lateral sclerosis type 4 [email or web address] Not available 10/2024 14:50:11 Mother Hypertensive disorder Not available 2020 21:42:58 Maternal Grandmother Diabetes mellitus Not available 2020 21:43:13 Paternal Aunt Malignant neoplasm of ovary Not available 2020 21:43:28 Medical History Condition Response Allergies (Food, seasonal, environmental ) N Other Y Breast Cancer N Drug/Latex Allergies/Reactions N Blood Transfusion N Lung Disease N Dermatologic Disorders N Defects or Inherited Disease N Breast Problem N Gestational Diabetes N Hematologic disorders N Anesthesia Complications N History of STI Y Deep Vein Thrombosis N Polycystic ovary syndrome N Anxiety Disorder N Autoimmune disease N Arthritis N Polyps N Infertility N History of abnormal pap N Acid Reflux (GERD) N Cancer N Varicosities N Stroke N Neurologic/Epilepsy N Endometriosis N High Cholesterol N Fibromyalgia N Headaches N Kidney Disease N Heart Problems N Kidney or Bladder Problems N Thyroid Problems N GI Problems N Eating Disorder [...] Gynecological History Statement/Question Response Abnormal Pap N Date of Last Mammogram 04/24/2019 Date of LMP N Was last menstrual period normal Y STIs/STDs Y HPV Vaccine Y 12 Current Control Method Are cycles usually normal Y Frequency of Cycle (Q days) 28 Sexually Active? Y Menses Monthly Y Age of first menstrual cycle 12 Date of Last Pap Smear 10/29/2024 Sexual Problems? N LMP Definite N Obstetrics History GPAL:G 0 P 0 0 0 0 Type Value Living 0 Total 0 Past Encounters Encounter ID Performer Location Encounter Start Date Encounter Closed Date Diagnosis/Indication Diagnosis SNOMED-CT Code Diagnosis ICD10 Code Diagnosis IMO Codes Diagnosis Note [id number] Sobeida Lundberg [facility] [address] [address] 09/16/2020 11:58:53 09/16/2020 14:10:48 Vaginitis 56090339 N76.0 Rx sent for probable yeast Gynecologi c examination 59171023 Z01.419 Take Calcium with Vitamin D 1200mg [...] desired. Primary pap next year STD sent [id number] Sobeida Lundberg [facility] [address],[facility] [place] [address] 09/29/2021 12:00:14 09/29/2021 13:14:59 Gynecologic examination 04592121 Z01.419 Take Calcium with Vitamin D 1200mg [...] na Routine Labs UTD PCPMammo na Vaginitis 78426658 N76.0 Z11.3 Treated for BV & Yeast [id number] Sobeida Lundberg , [facility] [address],[place] [address] 01/02/2022 09:40:33 01/02/2022 10:13:38 Cystic acne 14171026 L70.0 Discussed all control options in great [...] ing. RTO x 3mos med check Vaginitis 11225726 N76.0 Z11.3 Treated for BV with sample of solosecSTD screen sent (two Sexual partners)S uspect BV on exam [id number] Sobeida Lundberg [facility] [address],[place] [address] 05/23/2022 16:12:11 05/23/2022 16:38:16 Cystic acne 87810621 L70.0 Patient is here today for a [...] and review of plan of care. Vaginitis 55563360 N76.0 Z11.3 Suspect BV with voiced complaints todayAlso on her menses. Sexually t ransmitted infectious disease 8779487 A64 Wants STD screen for HSV.Has a friend who was exposed to another person that had HSV and worried she might have been exposed too. [id number] Sobeida Lundberg [facility] [address],[place] [address] 08/15/2022 14:21:50 08/15/2022 14:56:33 Irregular periods 17646973 N92.6 She will start her Erin which [...] counseling and review of plan of care. [id number] Sobeida Lundberg , [facility] [address],[place] [address] 08/24/2023 12:50:19 08/24/2023 13:33:42 Labial cyst 640700303 N90.7 Today we observed a labial cyst [...] counseling and review of plan of care. [id number] Cortez Anguiano MD [facility] [address],[place] [address] 10/29/2024 14:59:19 10/29/2024 15:34:53 Well woman health examination 146152381 Z01.419 065493 Annual gynecologi mercedes exam performed. Patient will come back in a year unless there are new symptoms. Suggest Calcium with Vitamin D if not eating in diet. Patient advised to get annual flu shot. Recommend yearly physicals and perform monthly breast exams. Genetic testing is available for patients with family history of cancer. Engage in safe sexual practices, use condoms. Encouraged to have daily exercise. Avoid tobacco and illicit drugs, moderation of alcohol. If BMI greater than 25 dietary consult advised. If you have any questions please call or email. Pap smear- pap w/ HPV reflex collected laboratory evaluation - PCP STI testing - requested Recommende d PNV if trying to conceive; pt to call office if she does not have a period at least every 3 months. Venereal d isease screening 457736057 Z11.3 782732 Pt requested STI testing.Di scussed the various types of STDs, related symptoms and the potential consequenc es (including effects on fertility) of STD infections . Reviewed ways to limit exposure and prevention techniques . [id number] Cortez Anguiano MD [facility] [address],[facility] [address] 12/03/2024 10:23:42 12/03/2024 13:22:16 Missed period 71261139 N92.6 8580305 Discussed that it may take three months for periods to return/reg ulate after stopping hormonal control pills. Discussed that her uterine lining may be thin from the BC, which can cause minimal to no bleeding for a few months. UPT today negative. Recommende d pelvic ultrasound to assess endometria l lining and labs to assess hormone levels. Patient declined at this time and would like to monitor for bleeding for another month before testing. [id number] Cortez Anguiano MD [facility] [address] [address] 01/08/2025 10:39:08 01/08/2025 12:27:12 Amenorrhea 61929707 N91.2 24142 Finding of menstrual bleeding 532680108 Z36.87 079446 [id number] Cortez Anguiano MD [facility] [address] [address] 01/14/2025 15:38:27 01/14/2025 16:15:03 Nausea 490982331 R11.0 49099 this patient is a 24-year-ol d female presents for nausea and vomiting of . She has lost some weight. She is having trouble keeping food down. She is keeping liquids down. We discussed treatment in detail. She was prescribed medication s. She was complainin g of intense heartburn. We agreed to over-the-c ounter Prilosec/P revacid. She was prescribed promethazi ne. We talked about the medication s in detail. Talked about risks, benefits, and alternativ es. She understand s the instructio ns and the precaution s. I spent over 20 minutes on her care in total. [id number] Cortez Anguiano MD [facility] [address],[place] [address] 01/28/2025 12:22:38 01/28/2025 13:08:07 screening 042564723 Z36.87 Z3A.01 [id number] Cortez Anguiano MD [facility] [address],[place] [address] 02/09/2025 14:50:02 02/09/2025 15:06:37 [id number] Cortez Anguiano MD [facility] [address],[place] [address] 02/09/2025 14:50:31 02/09/2025 15:59:15 Amenorrhea 68449225 N91.2 [id number] this patient is an 24-year-ol d female with amenorrhea . She has a positive test and ultrasound shows a viable intrauteri ne . We talked about early care. Talked about precaution s in that included comments about diet, exercise, over-the-c ounter medication s.. We talked about vaccines. Talked about genetic screening. Talked about her ultrasound today and your ultrasound at 12 weeks. She will begin routine care. We spent 20 minutes face-to-fa ce. More than 50% was counseling . Health Concerns Section Related Observation LastModified by Organization Detai ls LastModified Time None Recorded Concern Status LastModified by Organization Details LastModified Time None Recorded Advance Directives Directive N: Payers Insurance Date Sequence Insurance Name Policy Number Policy Heller Covered Member ID Heller Member ID Guarantor Name 02/06/2025 1 [employer] [id number] Fredi Stephen [id number] Yudith Stephen Notes Date Note Type Note Provider Name and Address Organization Details Recorded Time 01/14/2025 text/html OB ProblemReport ed by Patient this patient is a 24-year-old female presents for nausea and vomiting of . She has lost some weight. She is having trouble keeping food down. She is keeping liquids down. We discussed treatment in detail. She was prescribed medications. She was complaining of intense heartburn. We agreed to [id number] Prilosec/Prevacid. She was prescribed promethazine. We talked about the medications in detail. Talked about risks, benefits, and alternatives. She understands the instructions and the precautions. I spent over 20 minutes on her care in total. Cortez Anguiano MD [address], [place], [address], [facility] 01/14/2025 16:10:59 02/09/2025 text/html Generic HPI TemplateReported by Patient this patient is an 24-year-old female with amenorrhea. She has a positive test and ultrasound shows a viable intrauterine . We talked about early care. Talked about precautions in that included comments about diet, exercise, acvl-tla-cqojqfr medications.. We talked about vaccines. Talked about genetic screening. Talked about her ultrasound today and your ultrasound at 12 weeks. She will begin routine care. We spent 20 minutes hnvs-[id number]. More than 50% was counseling. Cortez Anguiano MD [address], [place], [address], [facility] 02/09/2025 15:57:58 OBGyn Episode No OBEpisode recorded.
--- OUTSIDE RECORDS SUMMARY | 2025-02-22 20:43 | XMS_ITS | Clinical Summary ---
Author Organization [facility] Care Team Providers Care Junior Art Director Name Role Phone Unavailable Primary Care Provider [...]
--- OUTSIDE RECORDS SUMMARY | 2025-02-22 20:43 | XMS_ITS | Patient Health Record ---
Author Organization [facility] As [facility] Address [address] [place] [address] Care Team Providers Care Shaper Machine Hand Name Role Phone Destin Munoz Unavailable [phone] Reason For Referral No Information Medications Medication [...] ITCH REL 0.2% OPHTH UVALDO *Reorder from [employer] for eRx and Interaction Alerts* 02/03/2021 Active [...] Date Bcbs-M i Ppo-DN U [address] [place] [address] [id number] PACHECO WESLEY Child - Insured has Financial Responsibility
[2025-02-22 20:59] VITALS: BP 105/68; PULSE 60; RESP 14; O2SAT 100
[2025-02-22] MEDS: cefTRIAXone 1 GM in SODIUM CHLORIDE 0.9% IV 50 ML 100 ML IVPB (21:02)
[2025-02-22 22:54] VITALS: BP 107/78; PULSE 64; RESP 16; O2SAT 100
== END 2025-02-22 22:55 | disposition home or self-care (01) ==
PROVIDERS: Physician Assistant; Emergency Provider Student in an Organized Health Care Education/Training Program; PCP Family Medicine
DX: O26.891 Other specified pregnancy related conditions, first trimester (principal); R12 Heartburn; O23.41 Unspecified infection of urinary tract in pregnancy, first trimester; N39.0 Urinary tract infection, site not specified; O21.9 Vomiting of pregnancy, unspecified; O99.891 Other specified diseases and conditions complicating pregnancy; D72.829 Elevated white blood cell count, unspecified; O99.611 Diseases of the digestive system complicating pregnancy, first trimester; K21.9 Gastro-esophageal reflux disease without esophagitis; O99.341 Other mental disorders complicating pregnancy, first trimester; F41.8 Other specified anxiety disorders; O99.331 Smoking (tobacco) complicating pregnancy, first trimester; F17.200 Nicotine dependence, unspecified, uncomplicated; Z3A.11 11 weeks gestation of pregnancy; Z79.899 Other long term (current) drug therapy
CPT/HCPCS: 36415; 80053; 81001; 81025; 83690; 85025; 96365; 96375; 99284; A9270; J0696; J1200; J7120; J7121